=== PATIENT | female | born 1990 | race Caucasian/White ===

== ENCOUNTER 2018-03-26 01:26 | Emergency (ER) | payer SELFPAY ==
[2018-03-26 06:55] VITALS: BP 101/60; PULSE 96
--- NOTE | 2018-03-26 08:14 | OBDCSUM ---
Datetime: 03/26/2018 02:33 Discharged to, Provider: Home Follow up at, Provider: [facility] Disch Instr Activity: Normal activity Disch Instr Diet: Regular Discharge Diet restrict Prov: DRINK PLENTY OF WATER Discharge Time: 03/26/2018 02:34 Follow up in weeks, Provider: 03/28/2018 Disch Referrals: None Disch Activity Restrictions: No lifting Discharge Diagnosis Prov Other: False labor
--- NOTE | 2018-03-26 08:14 | OBHP ---
Datetime: 03/26/2018 02:10 IP Adm Impression: , intrauterine IP Admit Plan: Observation/Evaluation; Discharge home Admit Comment, IP Provider: This is 27 y/o F, , IUP at 36 wk GA comes to the OB ED c/o 1 day hi story of crampy upper abdominal pain. Pain comes and goes like CTX, 6/10 in severity, associated with 2 loose BMs and food makes this pain better. Denies any sour taste in mouth, no urinary symptoms, denies chest pain, dizziness or headache. PMH: Childhood asthma, not on any meds PSH: Appendectomy 3 yrs ago Allg: NKDA Meds: PNV/Iron SH: Denies FH: + HTN and DM OB: 1 NVD VS: Reviewed PE: as above A/P: 27 y/o F, , IUP at 36 wk GA comes to the OB ED c/o 1 day history of crampy upper abdomin al pain. - Observation - Pelvic exam - reevaluations - Possible discharge home Patient seen with Dr. Granados --- Mani Sumner, PGY-[address] Granados: I have evaluated the patient independently and I agree with the above Pelvic Type - PN: Adequate Extremities - PN: Normal Abdomen - PN: Normal Back - PN: Normal Lungs - PN: Normal Heart - PN: Normal Thyroid - PN: Normal Neurologic - PN: Normal HEENT - PN: Normal General - PN: Normal FHR - Baseline A Provider: 130 EGA AdmitDate IP: 36.0 Vital Signs Provider: Reviewed; Within Normal Limits IP Chief Complaint: Maternal discomfort NICHD Variability Prov Fetus A: Moderate 6-25bpm NICHD Accel Fetus A IP Provider: 15X15 FHR Category Provider Fetus A: Category I NICHD Decel Fetus A IP Provider: None Dilatation, Provider: FT Genitourinary Exam: Normal
== END 2018-03-26 02:35 | disposition home or self-care (01) ==
LOC: H.EROB2 01:26
DX: O47.03 False labor before 37 completed weeks of gestation, third trimester (principal); Z3A.36 36 weeks gestation of pregnancy; O26.93 Pregnancy related conditions, unspecified, third trimester; R10.2 Pelvic and perineal pain; R19.7 Diarrhea, unspecified

== ENCOUNTER 2018-04-11 20:58 | Inpatient (IN) | payer MEDICAID, SELFPAY ==
[2018-04-11 21:16] VITALS: BMI 25.0
[2018-04-11] MEDS ORDERED: Lactated Ringer's 1,000 ML IV SCH (22:45)
[2018-04-11 23:16] LABS: BASO % 0.5 % (0.0-2.0); EOS # 0.1 K/uL (0.0-0.7); EOS % 1.2 % (0.0-4.0); HEMOGLOBIN 12.3 g/dL (12.0-16.0); LYMPH # 1.5 K/uL (1.0-4.3); LYMPH % 16.6 % (20.0-40.0); MEAN CELL VOLUME 79.2 fl (81.0-99.0); MEAN CORPUSCULAR HEMOGLOBIN 26.5 pg (27.0-31.0); MEAN CORPUSCULAR HGB CONC 33.5 g/dL (33.0-37.0); MEAN PLATELET VOLUME 8.5 fl (7.2-11.7); MONO # 0.6 K/uL (0.0-0.8); MONO % 6.2 % (0.0-10.0); NEUT # 6.8 K/uL (1.8-7.0); NEUT % 75.5 % (50.0-75.0); NRBC % 0.2 % (0.0-0.0); RBC 4.62 Mil/uL (3.80-5.20); RED CELL DISTRIBUTION WIDTH 20.1 % (11.5-14.5); WHITE BLOOD COUNT 9.1 K/uL (4.8-10.8)
[2018-04-11 23:22] VITALS: O2SAT 99
--- NOTE | 2018-04-12 00:08 | OBADHP ---
Datetime: 04/11/2018 23:38 Admit Comment, IP Provider: Pt is a 27 y/o female with IUP 38.2 wks gestation (CLINT 04/13) presen ts to [facility] with complaints of LOF intermittently for the past day. Denies ctx, vb. Reports FM PNC: CFH. Anemia. O+, GBS negative, Labs reveiwed unremarkable. No TDAP OBHX: 1 , FT, no complications PMHX: denies Meds: PNV, Ferrous Sulfate Allergies: NKDA Social: Denies x3 Maternal Vitals wnl General: Appears comfortable, NAD Cardio:RRR, No murmurs Pulm: Lungs CTABL Abdomen: gravid, NT Speculum: +pooling, clear, Nitrazine+ Cervical: 4cm, 75, -2 FHR-150 Limited bedside U/S: Cephalic A: IUP at 38.2 wks gestation, SROM P: Admit to L_D, CBC, Type _ Screen, Continous Monitoring, Monitor for progression of labor. Discussed case with Dr. Pk Licea, PGY1 Addendum: Plan admit patient for spontaneous rupture of membranes. Plan for observation, consider Pitocin au gmentation if indicated. Maternal well-being and well-being reassuring at this time. Plan discu ssed with patient and all questions answered. Pk Vital Signs Provider: Reviewed; Within Normal Limits IP Chief Complaint: Suspected ruptured membranes EGA AdmitDate IP: 38.3 IP Adm Impression: Term, intrauterine ; Ruptured Membranes IP Admit Plan: Admit to unit; Initiate labor protocol Datetime: 04/11/2018 23:28 Pool Provider: Positive Dilatation, Provider: 4 Effacement, Provider: 70 Station, Provider: -2 Datetime: 03/26/2018 02:10 Pelvic Type - PN: Adequate Extremities - PN: Normal Abdomen - PN: Normal Back - PN: Normal Lungs - PN: Normal Heart - PN: Normal Thyroid - PN: Normal Neurologic - PN: Normal HEENT - PN: Normal General - PN: Normal FHR - Baseline A Provider: 130 NICHD Variability Prov Fetus A: Moderate 6-25bpm NICHD Accel Fetus A IP Provider: 15X15 FHR Category Provider Fetus A: Category I NICHD Decel Fetus A IP Provider: None Genitourinary Exam: Normal
[2018-04-12] MEDS: Lactated Ringer's 1,000 ML IV SCH ×2 (01:40→03:26)
[2018-04-12] MEDS ORDERED: Fentanyl/Bupivacaine HCl 250 ML EPI ONE (02:48)
[2018-04-12] MEDS ORDERED: Lidocaine 2% Inj (20ml) ONE (02:50)
[2018-04-12] MEDS ORDERED: Bupivacaine HCl 0.25% PF (10 ml) Inj ONE (04:45)
[2018-04-12] MEDS ORDERED: Benzocaine/Menthol SPRAY TOP PRN (10:02)
[2018-04-12] MEDS ORDERED: Oxycodone/Acetaminophen 5/325 mg Tab PO PRN ×2 (10:02→14:32)
[2018-04-12] MEDS: Benzocaine/Menthol SPRAY TOP PRN (18:29)
[2018-04-12 18:33] LABS: URINE BILIRUBIN NEGATIVE (NEGATIVE); URINE BLOOD LARGE (NEGATIVE); URINE CLARITY SLIGHTY-CLOUDY (Clear); URINE COLOR YELLOW (YELLOW); URINE GLUCOSE (UA) >=500 mg/dL (Normal); URINE LEUKOCYTE ESTERASE NEG Leu/uL (Negative); URINE PROTEIN NEGATIVE (NEGATIVE); URINE UROBILINOGEN 0.2-1.0 mg/dL (0.2-1.0)
--- NOTE | 2018-04-13 08:24 | OBPPN ---
Datetime: 04/13/2018 06:56 PP Pain Prov: Within normal limits PP Nausea Prov: Denies PP Flatus Prov: Yes PP BM Prov: No PP Impression Prov: Normal progression PP Plan Prov: Continue present management Vital Signs Provider PP: Reviewed; Within Normal Limits Datetime: 04/12/2018 18:16 PP Impression Other Prov: urinary retention PP Progress Note Prov: PPD 0 Pt delivered this am; after delivery and transfer to mother-baby unit experienced urina ry urgency; voided 100 ml four times as per RN, and continued to have urge to void. Pt was straight c atheterized and 1600 cc urine was obtained. If pt continues to experience symptoms of urinary retention, plan for becerra insertion. Discussed w/ Dr. Dylan [email or web address] Aware of above - MAHNDO : UA/C_S/Cephalexin/becerra and will consider urology IP PP Procedures Comments: s/p straight catheterization
--- NOTE | 2018-04-13 08:40 | OBPPN ---
Datetime: 04/13/2018 06:56 PP Progress Note Prov: PPD 1 S: 27 y/o female s/p on 04/12/18 evaluated on PPD1. Pt was seen and examined at [facility] this AM. Pt retaining urine yesterday, was straight cath x1 but still retaining so becerra placed ov ernight. Pt reports mild abdominal pain, but well controlled with pain meds. Ambulating. Breast feedi ng (with formula supplementation) without difficulty. Lochia is similar to menses volume. No BM but p assing gas per rectum. Denies fever/chills, diarrhea, nausea/vomiting, chest pain, dyspnea, and dizz iness. Wants circumcision for baby boy. O: VS stable overnight. Urine output after becerra placement- 750cc GEN: NAD Cardio: S1S2, no murmurs Lungs: clear breath sounds b/l, no wheezing Abdomen: BS+, appropriate tenderness to palpation. Uterus is firm and at the level of the umbilic us. EXT: No edema, calves nontender NEURO/PSYCH: AAOx3, no grossly focal deficits, preserved affect and mood. H/H (post ): pending U/A (04/13): Mild pyuria; LES neg, Nitrite neg Assessment/Plan: 25 y/o female s/p on 04/12/18 PPD1. Pt remains afebrile, tolerating pain with medication. Tolerating diet. Given pt's urinary retention w/ symp of urgency, started on tr eatment for possibel Cystitis. Packing removed this am Anticipating d/c on 04/14. Continue with curre nt management Encourage and ambulating Continue monitoring urine output Continue Kephlex 500 PO TID for Cystitis Consider removing becerra for voiding trial Ibuprofen 600q6 for pain Senakot 17.2 mg PO HS Migue Licea, PGY1 OB Hospitalist on-call. Pt seen this morning on rounds. Perineum swollen; becerra in place. No ac tive VB noted/appears to be normal amt lochia...urology consult Dr Bird called [phone]
[2018-04-13 09:05] LABS: MEAN CELL VOLUME 79.7 fl (81.0-99.0); MEAN CORPUSCULAR HEMOGLOBIN 27.3 pg (27.0-31.0); MEAN CORPUSCULAR HGB CONC 34.3 g/dL (33.0-37.0); RBC 3.64 Mil/uL (3.80-5.20); WHITE BLOOD COUNT 10.5 K/uL (4.8-10.8)
[2018-04-13 09:18] LABS: HEMOGLOBIN 9.9 g/dL (12.0-16.0)
[2018-04-13] MEDS: Benzocaine/Menthol SPRAY TOP PRN (09:24)
--- NOTE | 2018-04-13 12:36 | CP.PCM.PN ---
Subjective - Date & Time of Evaluation Date of Evaluation: 04/13/18 Time of Evaluation: 12:32 - Subjective Subjective: 27 year old uzbek female with post urinary retention. No hx of previous urinary problems, Becerra draining clear urine. Suggest leave becerra for 24-72 hr if pt fails to void discharge with becerra and refer for opd MONICA Samuel Objective - Vital Signs/Intake and Output Vital Signs (last 24 hours): Temp Pulse Resp BP Pulse Ox 98.2 F 95 H 20 114/84 99 04/11/18 23:21 04/11/18 23:21 04/11/18 23:21 04/11/18 23:21 04/11/18 23:21 - Medications Medications: Current Medications Benzocaine/Menthol (Dermoplast) 1 sprays TOP PRN PRN PRN Reason: Perineal Discomfort Last Admin: 04/13/18 09:24 Dose: 1 sprays Cephalexin Monohydrate (Keflex) 500 mg PO TID REYMUNDO PRN Reason: Protocol Last Admin: 04/13/18 09:22 Dose: 500 mg Docusate Sodium (Colace) 100 mg PO BID [facility] Last Admin: 04/13/18 09:23 Dose: 100 mg Ibuprofen (Motrin Tab) 600 mg PO Q6 PRN PRN Reason: Pain, Mild (1-3) Last Admin: 04/13/18 00:59 Dose: 600 mg Oxycodone/Acetaminophen (Percocet 5/325 Mg Tab) 1 tab PO Q4 PRN PRN Reason: Pain, moderate (4-7) Stop: 04/15/18 10:03 - Labs Labs: 04/13/18 06:30 04/13/18 06:30
[2018-04-14 23:41] VITALS: BP 126/80; PULSE 92; RESP 18; TEMP 97.1
--- NOTE | 2018-04-15 08:21 | CON ---
DATE: 04/13/2018 TIME: Approximately noontime. REASON FOR CONSULTATION: urinary retention. HISTORY OF PRESENT ILLNESS: The patient is a 27-year-old female who delivered her second child with a normal spontaneous delivery, which did require episiotomy. The patient was having difficulty voiding after the delivery and found to be distended and Shelton catheter was inserted and large amount of urine was obtained. She gives no history of prior urinary difficulties prior to this delivery. She did not have urinary retention after her first child. She gives no history of having fever, dysuria, or pain at home. SOCIAL HISTORY: Noncontributory. REVIEW OF SYSTEMS: RESPIRATORY: The patient has no respiratory complaints. CARDIAC: The patient has no cardiac complaints. GASTROINTESTINAL: The patient has no nausea or change in bowel habits. GENITOURINARY: The patient has been unable to void. She states she is having only urine simply dribbled out and she could not empty her bladder. Shelton catheter was inserted and large amount of clear urine was obtained. GYNECOLOGIC: The patient is , having delivered her second child on this admission vaginally. ORTHOPEDIC: Noncontributory. NEUROLOGIC: Noncontributory. PHYSICAL EXAMINATION: VITAL SIGNS: The patient is alert, oriented, and awake. She has her child with her. HEAD, EARS, EYES, NOSE AND THROAT: Within normal limits. NECK: Supple. There are no bruits or masses. CHEST: Clear bilaterally. There are no rales or rhonchi. BREASTS: Normal. ABDOMEN: Soft and nontender. The bladder is no longer distended. The patient has no anterior abdominal tenderness. Shelton catheter is draining clear urine. Because of the state, the vaginal examination was not done. IMPRESSION: urinary retention. PLAN: Suggestive of Shelton for 24 to 72 hours and gives the second voiding trial. The patient cannot and refer for urological examination. No further therapy on this admission. Bethel Samuel MD
== END 2018-04-14 19:00 | disposition home or self-care (01) | DRG 775 ==
LOC: H.EROB2 20:58 → H.L&D 22:45 → H.OB/GYN 04-12 12:35
PROVIDERS: ADMIT Obstetrics & Gynecology; ATTEND Obstetrics & Gynecology
PROC: 4A1HXCZ Monitoring of Products of Conception, Cardiac Rate, External Approach (ICD-10-PCS; 2018-04-11)
PROC: 10E0XZZ Delivery of Products of Conception, External Approach (ICD-10-PCS; principal; 2018-04-12)
PROC: 0KQM0ZZ Repair Perineum Muscle, Open Approach (ICD-10-PCS; 2018-04-12)
DX: O70.1 Second degree perineal laceration during delivery (principal); Z37.0 Single live birth; O86.22 Infection of bladder following delivery; Z3A.38 38 weeks gestation of pregnancy

== ENCOUNTER 2018-04-29 02:20 | Inpatient (IN) | payer MEDICAID, SELFPAY ==
[2018-04-29 02:20] VITALS: BMI 25.0
[2018-04-29] MEDS ORDERED: Alum-Mag Hydrox-Simethicone Susp (30 mL) PO STA (03:07)
--- NOTE | 2018-04-29 03:09 | ED PDOC ---
HPI: Abdomen Chief Complaint (Provider): "julio had epigastric pain today" History Per: Patient History/Exam Limitations: no limitations Onset/Duration Of Symptoms: Hrs Outside of [place] travel?: No Current Symptoms Are (Timing): Still Present <Kendall Hu - Last Filed: 04/29/18 05:08> <Abelino Chaudhari - Last Filed: 04/29/18 07:11> Chief Complaint (Nursing): Abdominal Pain Additional Complaint(s): 27 y/o s/p 15 days ago presents for evaluation of epigastric pain. Pain started this morning, without any inciting event. It is located in her epigastric region, radiates along her rectus abdomins muscle, 8/10, constant, pinching in character. Alleviated with rest, exacerbated with straining. Tolerated PO intake all day w/o issue. No associated nausea/vomiting/diarrhea/ constipation. was unremarkable. Denies ETOH/NSAID use. Has not taken any medications. No fever/chills, RUQ pain. (Kendall Hu) Past Medical History - Medical History PMH: Denies: Depression, Diabetes, HTN - Family History Family History: States: No Known Family Hx <Kendall Hu - Last Filed: 04/29/18 05:08> <Abelino Chaudhari - Last Filed: 04/29/18 07:11> Vital Signs: Last Vital Signs Temp 98.2 F 04/29/18 02:43 Pulse 81 04/29/18 02:43 Resp 16 04/29/18 02:43 BP 116/78 04/29/18 02:43 Pulse Ox 99 04/29/18 05:10 - Home Medications Home Medications: Ambulatory Orders Medication Instructions Recorded Vit No.126/Iron/Folic 1 tab PO DAILY 04/12/18 [Classic Tablet] Docusate [Colace] 100 mg PO BID cap 04/14/18 Ibuprofen [Motrin Tab] 600 mg PO Q6 PRN tab 04/14/18 - Allergies Allergies/Adverse Reactions: Allergies Allergy/AdvReac Type Severity Reaction Status Date / Time No Known Allergies Allergy Verified 04/29/18 02:43 Review of Systems Constitutional: Negative for: Fever, Chills, Sweats, Weakness Cardiovascular: Negative for: Chest Pain, Palpitations, Orthopnea, Edema Respiratory: Negative for: Cough, Shortness of Breath, Hemoptysis, SOB with Exertion, Pleuritic Pain, Sputum, Wheezing Gastrointestinal: Positive for: Other (epigastric pain ). Negative for: Nausea , Vomiting, Abdominal Pain, Diarrhea, Constipation, Melena, Hematochezia, Hematemesis Genitourinary Female: Negative for: Dysuria, Frequency, Incontinence Musculoskeletal: Negative for: Shoulder Pain, Back Pain Skin: Negative for: Rash, Jaundice Neurological: Negative for: Weakness, Numbness, Confusion, Altered Mental Status Psych: Negative for: Anxiety, Depression <Kendall Hu - Last Filed: 04/29/18 05:08> Physical Exam - Reviewed Vital Signs Reviewed: Yes - Physical Exam Appears: Positive for: Well, Non-toxic, No Acute Distress Head Exam: Positive for: ATRAUMATIC, NORMAL INSPECTION, NORMOCEPHALIC Skin: Positive for: Normal Color, Warm, Dry. Negative for: Diaphoresis, Pallor , Rash, Jaundice Eye Exam: Positive for: Normal appearance, EOMI, PERRL. Negative for: Conjunctival injection, Scleral icterus Neck: Positive for: Painless ROM, Supple Cardiovascular/Chest: Positive for: Regular Rate, Rhythm, Chest Non Tender. Negative for: Edema, Gallop, JVD, Murmur, Tachycardia, Irregularly Irregular Respiratory: Positive for: Normal Breath Sounds. Negative for: Decreased Breath Sounds, Accessory Muscle Use, Crackles, Rales, Rhonchi, Wheezing Pulses-Dorsalis Pedis (L): 2+ Pulses-Dorsalis Pedis (R): 2+ Pulses-Radial (L): 2+ Pulses-Radial (R): 2+ Gastrointestinal/Abdominal: Positive for: Normal Exam, Bowel Sounds (normal ), Soft, Tenderness (epigastric ). Negative for: Mass, Distended, Guarding, Rebound, Hernia Back: Negative for: L CVA Tenderness, R CVA Tenderness Extremity: Positive for: Capillary Refill (<2s). Negative for: Pedal Edema Neurologic/Psych: Positive for: Alert, clin nurse II-XII, Oriented <Kendall Hu - Last Filed: 04/29/18 05:08> - Laboratory Results Result Diagrams: 04/29/18 04:00 04/29/18 04:08 - ECG O2 Sat by Pulse Oximetry: 99 - Progress Re-evaluation Time: 05:09 Condition: Re-examined, Improved <Kendall Hu - Last Filed: 04/29/18 05:08> - Laboratory Results Result Diagrams: 04/29/18 04:00 04/29/18 04:08 <Abelino Chaudhari - Last Filed: 04/29/18 07:11> - Progress ED Course And Treament: non-ulcer dyspepsia/pancreatitis/hernia GI cocktail cmp lipase abd CT re-evaluated labs wnl, CT pending (Kendall Hu) Medical Decision Making <Kendall Hu - Last Filed: 04/29/18 05:08> <FaraAbelino - Last Filed: 04/29/18 07:11> Medical Decision Makin CT FINDINGS: Lung bases: Unremarkable. No mass. No consolidation. ABDOMEN: Liver: Enlarged fatty liver. Gallbladder and bile ducts: Unremarkable. No ductal dilation. Pancreas: Unremarkable. No mass. No ductal dilation. Spleen: Unremarkable. No splenomegaly. Adrenals: Unremarkable. No mass. Kidneys and ureters: Unremarkable. No solid mass. No hydronephrosis. Stomach and bowel: Large amount of stool in the colon. Correlation with patient' s clinical history of constipation is recommended. Diverticulosis. PELVIS: Appendix: There is short appendix 1.2 cm with appendicolith measuring 1.7 cm with surrounding inflammation suspicious for acute appendicitis with thickening of the cecal base seen on image 124 series 3 versus an inflamed cecal diverticulum with fecalith. Correlation with patient's clinical history is recommended. Bladder: Bladder distention. Correlation with patient's voiding status is recommended. Reproductive: Enlarged uterus. Endometrial stripe thickening and/or fluid. ABDOMEN and PELVIS: Intraperitoneal space: Unremarkable. No free air. No significant fluid collection. Bones/joints: No acute fracture. No dislocation. Soft tissues: Unremarkable. Vasculature: Unremarkable. No abdominal aortic aneurysm. Lymph nodes: Subcentimeter mesenteric lymph nodes. IMPRESSION: 1. There is short appendix 1.2 cm with appendicolith measuring 1.7 cm with surrounding inflammation suspicious for acute appendicitis with thickening of the cecal base seen on image 124 series 3 most likely versus an inflamed cecal diverticulum with fecalith. Correlation with patient's clinical history is recommended. 2. uterus with endometrial stripe thickening and/or fluid. CRITICAL RESULT: The study was personally discussed on the telephone with [Abelino Causey] on 04/29/2018 6:57 AM EDT. The results were understood and acknowledged. Will discuss case with certified surgical tech/first assistant. 07 Discussed case with certified surgical tech/first assistant, who will evaluate patient in ED. Patient signed out from this provider to Dr. Cavazos. Scribe Attestation: Documented by Taisha Garrison acting as a scribe for Abelino Chaudhari MD. Scribe Attestation: All medical record entries made by the Scribe were at my direction and personally dictated by me. I have reviewed the chart and agree that the record accurately reflects my personal performance of the history, physical exam, medical decision making, and the department course for this patient. I have also personally directed, reviewed, and agree with the discharge instructions and disposition. (Abelino Chaudhari) Disposition - Patient ED Disposition Is Patient to be Admitted: Transfer of Care - Disposition Disposition: Transfer of Care Disposition Time: 05:10 <Kendall Hu - Last Filed: 04/29/18 05:08> - Patient ED Disposition Is Patient to be Admitted: Transfer of Care - Disposition Disposition Time: 07:00 Patient Signed Over To: Demar Cavazos Handoff Comments: Pending CT <Abelino Chaudhari - Last Filed: 04/29/18 07:11> - Clinical Impression Clinical Impression: Abdominal pain - Disposition Condition: STABLE Forms: [facility] ([place])
[2018-04-29] MEDS ORDERED: Iohexol 240 (50 ml) PO ONE (03:33)
[2018-04-29] MEDS ORDERED: Alum-Mag Hydrox-Simethicone Susp (30 mL) ONE (03:43)
[2018-04-29] MEDS ORDERED: Iohexol 240 (50 ml) ONE (03:43)
[2018-04-29 04:13] LABS: BASO # 0.1 K/uL (0.0-0.2); BASO % 0.8 % (0.0-2.0); EOS # 0.2 K/uL (0.0-0.7); HEMOGLOBIN 13.4 g/dL (12.0-16.0); LYMPH # 2.3 K/uL (1.0-4.3); LYMPH % 17.9 % (20.0-40.0); MEAN CELL VOLUME 79.3 fl (81.0-99.0); MEAN CORPUSCULAR HEMOGLOBIN 26.7 pg (27.0-31.0); MEAN CORPUSCULAR HGB CONC 33.6 g/dL (33.0-37.0); MEAN PLATELET VOLUME 7.8 fl (7.2-11.7); MONO # 0.6 K/uL (0.0-0.8); MONO % 4.7 % (0.0-10.0); NEUT # 9.4 K/uL (1.8-7.0); NEUT % 74.6 % (50.0-75.0); NRBC % 0.1 % (0.0-0.0); RBC 5.02 Mil/uL (3.80-5.20); RED CELL DISTRIBUTION WIDTH 17.5 % (11.5-14.5); SQUAMOUS EPITHIAL < 1 /hpf (0-5); URINE BILIRUBIN NEGATIVE (NEGATIVE); URINE BLOOD MODERATE (NEGATIVE); URINE CLARITY CLEAR (Clear); URINE COLOR STRAW (YELLOW); URINE GLUCOSE (UA) NEG (Normal); URINE LEUKOCYTE ESTERASE TRACE Leu/uL (Negative); URINE PROTEIN NEGATIVE (NEGATIVE); URINE UROBILINOGEN 0.2-1.0 mg/dL (0.2-1.0); WHITE BLOOD COUNT 12.6 K/uL (4.8-10.8)
[2018-04-29 04:20] LABS: ALBUMIN 4.1 g/dL (3.5-5.0); ALT/SGPT 34 U/L (9-52); AST/SGOT 27 U/L (14-36); BLOOD UREA NITROGEN 18 mg/dl (7-17); CALCIUM 10.1 mg/dL (8.4-10.2); GFR AFRICAN-AMERICAN > 60; GFR NON-AFRICAN AMERICAN > 60; LIPASE 95 U/L (23-300)
[2018-04-29] MEDS ORDERED: Sodium Chloride 0.9% 50 ML IV ONE (05:51)
[2018-04-29] MEDS ORDERED: Iohexol 300 100 ML IJ ONE (05:51)
--- NOTE | 2018-04-29 07:00 | CT ---
EXAM: CT Abdomen and Pelvis With Intravenous Contrast CLINICAL HISTORY: 27 years old, female; Pain; Abdominal pain; Epigastric; Additional info: Epig pain radiating down, recent vag delivery TECHNIQUE: Axial computed tomography images of the abdomen and pelvis with intravenous contrast. All CT scans at this facility use one or more dose reduction techniques, viz.: automated exposure control; ma/kV adjustment per patient size (including targeted exams where dose is matched to indication; i.e. head); or iterative reconstruction technique. 555 images are submitted. Axial images are submitted in soft tissue and lung windows. Oral contrast was administered. Coronal and sagittal reformatted images were created and reviewed. Axial reformatted images were created and reviewed. CONTRAST: 90 mL of [id number] administered intravenously. COMPARISON: No relevant prior studies available. FINDINGS: Lung bases: Unremarkable. No mass. No consolidation. ABDOMEN: Liver: Enlarged fatty liver. Gallbladder and bile ducts: Unremarkable. No ductal dilation. Pancreas: Unremarkable. No mass. No ductal dilation. Spleen: Unremarkable. No splenomegaly. Adrenals: Unremarkable. No mass. Kidneys and ureters: Unremarkable. No solid mass. No hydronephrosis. Stomach and bowel: Large amount of stool in the colon. Correlation with patient's clinical history of constipation is recommended. Diverticulosis. PELVIS: Appendix: There is short appendix 1.2 cm with appendicolith measuring 1.7 cm with surrounding inflammation suspicious for acute appendicitis with thickening of the cecal base seen on image 124 series 3 versus an inflamed cecal diverticulum with fecalith. Correlation with patient's clinical history is recommended. Bladder: Bladder distention. Correlation with patient's voiding status is recommended. Reproductive: Enlarged uterus. Endometrial stripe thickening and/or fluid. ABDOMEN and PELVIS: Intraperitoneal space: Unremarkable. No free air. No significant fluid collection. Bones/joints: No acute fracture. No dislocation. Soft tissues: Unremarkable. Vasculature: Unremarkable. No abdominal aortic aneurysm. Lymph nodes: Subcentimeter mesenteric lymph nodes. IMPRESSION: 1. There is short appendix 1.2 cm with appendicolith measuring 1.7 cm with surrounding inflammation suspicious for acute appendicitis with thickening of the cecal base seen on image 124 series 3 most likely versus an inflamed cecal diverticulum with fecalith. Correlation with patient's clinical history is recommended. 2. uterus with endometrial stripe thickening and/or fluid. CRITICAL RESULT: The study was personally discussed on the telephone with [Abelino Causey] on 04/29/2018 6:57 AM EDT. The results were understood and acknowledged.
--- NOTE | 2018-04-29 07:35 | ED PDOC ---
- Laboratory Results Result Diagrams: 04/29/18 04:00 04/29/18 04:08 - ECG O2 Sat by Pulse Oximetry: 99 Medical Decision Making Medical Decision Makin:00 Patient care endorsed from Dr. Abelino Chaudhari to Dr. Demar Cavazos pending surgical reevaluation. 09:05 Case discussed with rn surgical Chelly who wants pt on abx and to be admitted to hospitalist, who was made aware. 10:20 Pt developed shortness of breath and chest pains after morphine and zosyn. i evaluated her, her lungs were clear. no sweling or rash noted. She was given benadryl, albuterol, and oxygen. 10:40 On reevaluation, patient states that she feels better after the medication and treatments. rn surgical made aware of the possible med allergy and they will change the antibiotics. Scribe Attestation: Documented by Nabila Mukherjee, acting as a scribe for Demar Cavazos MD Provider Scribe Attestation: All medical entries made by the Scribe were at my direction and personally dictated by me. I have reviewed the chart and agree that the record accurately reflects my personal performance of the history, physical exam, medical decision making, and the department course for this patient. I have also personally directed, reviewed, and agree with the discharge instructions and disposition. Disposition - Clinical Impression Clinical Impression: Abdominal pain - POA Present On Arrival: None - Disposition Disposition: Admitted as In-Patient Disposition Time: 09:00 Condition: STABLE
--- NOTE | 2018-04-29 08:52 | CP.PCM.CON ---
<Amos Murphy - Last Filed: 04/29/18 15:18> History of Present Illness - History of Present Illness History of Present Illness: Surgery Consult note. Dr. Spaulding 27yo F with no significant past medical history here for evaluation of abdominal pain. Pain started at 3PM yesterday, located in the epigastric region , radiates to the periumbilical region. Pain described as sharp, waxing and waning, worse with movement (bending forward, flexing hips). States that the pain is similar to episode 3 years ago when she was diagnosed with acute appendicits and had Lap Appy performed in [facility]. She denies any fevers or chills. No sick contacts. She did have a normal vaginal delivery 15 days ago and is currently breast feeding. No N/V/D. Last BM yesterday night, normal caliber, no blood. No F/C. No urinary complaints. No CP/SOB. No headaches. PMHx: denies PSHx: Lap Appy 3 years ago in [facility] Family Hx: Non-contributory Social Hx: Lives in [facility] and is set to return May 09. Denies Tobacco. Denies ETOH. Denies illicit drugs NKDA Review of Systems - Review of Systems All systems: reviewed and no additional remarkable complaints except - Constitutional Constitutional: absent: Chills, Fever - Cardiovascular Cardiovascular: absent: Chest Pain, Dyspnea - Respiratory Respiratory: absent: Cough - Gastrointestinal Gastrointestinal: Abdominal Pain. absent: Diarrhea, Hematemesis, Hematochezia, Nausea, Vomiting - Genitourinary Genitourinary: absent: Dysuria Past Patient History - Past Medical History & Family History Past Medical History?: Yes Past Family History: Reviewed and not pertinent - Past Social History Smoking Status: Never Smoked Alcohol: None Drugs: Denies - CARDIAC Hx Hypertension: No - PSYCHIATRIC Hx Depression: No - SURGICAL HISTORY Hx Surgeries: No - ANESTHESIA Hx Anesthesia: No Meds Allergies/Adverse Reactions: Allergies Allergy/AdvReac Type Severity Reaction Status Date / Time morphine Allergy SHORTNESS Verified 04/29/18 10:35 OF BREATH Penicillins Allergy URTICARIA Verified 04/29/18 12:16 - Medications Medications: Current Medications Sodium Chloride (Sodium Chloride 0.9%) 1,000 mls @ 100 mls/hr IV .Q10H REYMUNDO Stop: 06/05/18 08:49 Piperacillin Sod/Tazobactam (Sod 3.375 gm/ Sodium Chloride) 100 mls @ 100 mls/ hr IVPB Q6 REYMUNDO PRN Reason: Protocol Morphine Sulfate (Morphine) 2 mg IVP Q4 PRN PRN Reason: Pain, moderate (4-7) Ondansetron HCl (Zofran Inj) 4 mg IVP Q6 PRN PRN Reason: Nausea/Vomiting Physical Exam - Constitutional Appears: Well, Non-toxic, No Acute Distress - Head Exam Head Exam: ATRAUMATIC, NORMAL INSPECTION, NORMOCEPHALIC - Eye Exam Eye Exam: EOMI, Normal appearance - ENT Exam ENT Exam: Mucous Membranes Moist - Respiratory Exam Respiratory Exam: NORMAL BREATHING PATTERN. absent: Accessory Muscle Use, Respiratory Distress - Cardiovascular Exam Cardiovascular Exam: RRR. absent: JVD - GI/Abdominal Exam GI & Abdominal Exam: Soft. absent: Distended, Guarding, Rebound Additional comments: Abdomen soft, non-distended. RLQ tenderness to palpation. No rebound, no guarding. - Extremities Exam Extremities exam: Positive for: normal inspection. Negative for: calf tenderness - Neurological Exam Neurological exam: Alert, Oriented x3 - Skin Skin Exam: Dry, Intact, Normal Color, Warm Results - Vital Signs Recent Vital Signs: Last Vital Signs Temp 98.2 F 04/29/18 07:55 Pulse 74 04/29/18 07:55 Resp 16 04/29/18 07:55 BP 126/70 04/29/18 07:55 Pulse Ox 100 04/29/18 07:55 - Labs Result Diagrams: 04/29/18 04:00 04/29/18 04:08 Labs: Laboratory Results - last 24 hr 04/29/18 04/29/18 04/29/18 04:00 04:00 04:08 WBC 12.6 H RBC 5.02 Hgb 13.4 D Hct 39.8 MCV 79.3 L MCH 26.7 L MCHC 33.6 RDW 17.5 H Plt Count 337 D MPV 7.8 Neut % (Auto) 74.6 Lymph % (Auto) 17.9 L [place] % (Auto) 4.7 Eos % (Auto) 2.0 Baso % (Auto) 0.8 Neut # (Auto) 9.4 H Lymph # (Auto) 2.3 [place] # (Auto) 0.6 Eos # (Auto) 0.2 Baso # (Auto) 0.1 Sodium 143 Potassium 4.1 Chloride 105 Carbon Dioxide 25 Anion Gap 17 BUN 18 H Creatinine 0.7 Est GFR ( Amer) > 60 Est GFR (Non-Af Amer) > 60 Random Glucose 83 Calcium 10.1 Total Bilirubin 0.3 AST 27 ALT 34 Alkaline Phosphatase 118 Total Protein 8.1 Albumin 4.1 Globulin 4.0 H Albumin/Globulin Ratio 1.0 Lipase 95 Urine Color Straw Urine Clarity Clear Urine pH 6.0 Ur Specific [place] 1.009 Urine Protein Negative Urine Glucose (UA) Neg Urine Ketones Negative Urine Blood Moderate Urine Nitrate Negative Urine Bilirubin Negative Urine Urobilinogen 0.2-1.0 Ur Leukocyte Esterase Trace Urine RBC (Auto) 2 Urine Microscopic WBC 3 Ur Squamous Epith Cells < 1 Assessment & Plan - Assessment and Plan (Free Text) Assessment: 27yo F with stump appendicitis - CT Abd/Pelvis noted. 1.7cm Appendicolith, wild-appendiceal stump inflammation with 1.2cm dilation. Plan: - NPO except meds - IVF - IV Abx - Pain management - Antiemetics prn - f/u AM labs Further recs as per Dr. Chelly Murphy PGY1 surgery pager: [phone] <Maurizio Spaulding - Last Filed: 04/29/18 16:36> History of Present Illness - History of Present Illness History of Present Illness: Patient was seen and examined at the bedside. Agree with resident's note above. Meds - Medications Medications: Current Medications Acetaminophen (Tylenol 325mg Tab) 650 mg PO Q6 PRN PRN Reason: Pain, Mild (1-3) Acetaminophen (Tylenol 325mg Tab) 650 mg PO Q6 PRN PRN Reason: Fever >100.4 F Albuterol/Ipratropium (Duoneb 3 Mg/0.5 Mg (3 Ml) Ud) 3 ml INH RQ6 PRN PRN Reason: Shortness of Breath Sodium Chloride (Sodium Chloride 0.9%) 1,000 mls @ 100 mls/hr IV .Q10H REYMUNDO Stop: 04/30/18 08:49 Last Admin: 04/29/18 09:25 Dose: 100 mls/hr Ciprofloxacin (Cipro 400mg/200ml Dsw) 400 mg in 200 mls @ 200 mls/hr IVPB Q12 REYMUNDO PRN Reason: Protocol Metronidazole (Flagyl 500mg/100ml Ns) 100 mls @ 100 mls/hr IVPB Q8 REYMUNDO PRN Reason: Protocol Ondansetron HCl (Zofran Inj) 4 mg IVP Q6 PRN PRN Reason: Nausea/Vomiting Pantoprazole Sodium (Protonix Ec Tab) 40 mg PO DAILY [facility] Results - Vital Signs Recent Vital Signs: Last Vital Signs Temp 98.2 F 04/29/18 16:18 Pulse 69 04/29/18 16:18 Resp 17 04/29/18 16:18 BP 91/61 L 04/29/18 16:18 Pulse Ox 99 04/29/18 16:18 - Labs Result Diagrams: 04/29/18 04:00 04/29/18 04:08 Labs: Laboratory Results - last 24 hr 04/29/18 04/29/18 04/29/18 04:00 04:00 04:08 WBC 12.6 H RBC 5.02 Hgb 13.4 D Hct 39.8 MCV 79.3 L MCH 26.7 L MCHC 33.6 RDW 17.5 H Plt Count 337 D MPV 7.8 Neut % (Auto) 74.6 Lymph % (Auto) 17.9 L [place] % (Auto) 4.7 Eos % (Auto) 2.0 Baso % (Auto) 0.8 Neut # (Auto) 9.4 H Lymph # (Auto) 2.3 [place] # (Auto) 0.6 Eos # (Auto) 0.2 Baso # (Auto) 0.1 Sodium 143 Potassium 4.1 Chloride 105 Carbon Dioxide 25 Anion Gap 17 BUN 18 H Creatinine 0.7 Est GFR ( Amer) > 60 Est GFR (Non-Af Amer) > 60 Random Glucose 83 Calcium 10.1 Total Bilirubin 0.3 AST 27 ALT 34 Alkaline Phosphatase 118 Total Protein 8.1 Albumin 4.1 Globulin 4.0 H Albumin/Globulin Ratio 1.0 Lipase 95 Urine Color Straw Urine Clarity Clear Urine pH 6.0 Ur Specific [place] 1.009 Urine Protein Negative Urine Glucose (UA) Neg Urine Ketones Negative Urine Blood Moderate Urine Nitrate Negative Urine Bilirubin Negative Urine Urobilinogen 0.2-1.0 Ur Leukocyte Esterase Trace Urine RBC (Auto) 2 Urine Microscopic WBC 3 Ur Squamous Epith Cells < 1 Assessment & Plan - Assessment and Plan (Free Text) Plan: - Will follow
[2018-04-29] MEDS ORDERED: Piperacillin/Tazobact 3.375 gm Inj IVPB ONE (09:15)
[2018-04-29] MEDS: Sodium Chloride 0.9% 1,000 ML IV SCH ×2 (09:25→19:30)
[2018-04-29] MEDS ORDERED: DiphenhydrAMINE 50 mg/ml Inj IVP STA (09:45)
[2018-04-29] MEDS ORDERED: Albuterol 0.083% Inhal Sol (2.5 mg/3 mL) UD INH ONE (09:46)
--- NOTE | 2018-04-29 09:48 | CP.PCM.HP ---
History of Present Illness - History of Present Illness History of Present Illness: 27 y/o F with no past medical history presented to ER with abdominal pain.Patient at present appears drowsy after receiving Benadryl for allergic reaction but able to answer questions. She and her gave history of abdominal pain starting yesterday , initially located in epigastric , periumbilical area, sharp , on and off worse with movement , associated with nausea . She denies any fever , chills , diarrhea or constipation .She has history of laparascopic appendectomy 3 years ago in [facility]. She had normal vaginal delivery 15 days ago and is still having vaginal spotting but denies any heavy bleeding .Denies any dysuria or frequency. She is breast feeding at present.Denies any chest pain , SOB, palpitations. Ct abdomen and pelvis in Er showed 1.7 cm appendicolith , peristump inflammation 1nd 1.2 cm dilatation. WBC was slightly elevated 12 K While in ER Morphine IV was given for pain and Zosyn IV started for peristump inflammation and patient developed allergic reaction with wheezing ( as per patient ) low BP and diffuse rash .Morphine and Zosyn were stopped , given Duonebs, Benadrl IV and bolus of IVF. At present lethargic , BP 99/50 , afebrile with diffuse skin rash and no respiratory distress. Patient to be admitted for possible infected stump appendicitis and allergic reaction of unclear etiology Allergies ; NKDA PMH : none Medications; MVI Surgery ;laparascopic appendectomy 3 years ago Family history ; None Social history : ,lives in [facility], had vaginal delivery 15 days ago, Denies smoking , ETOH or drug abuse ROS: complains of abdominal pain , feeling drowsy , with chills PMD ;None Code status: Full Surrogate decision maker: Present on Admission - Present on Admission Any Indicators Present on Admission: No Review of Systems - Review of Systems All systems: reviewed and no additional remarkable complaints except Past Patient History - Infectious Disease Hx of Infectious Diseases: None - Tetanus Immunizations Tetanus Immunization: Unknown - Past Medical History & Family History Past Medical History?: Yes Past Family History: Reviewed and not pertinent - Past Social History Smoking Status: Never Smoked Alcohol: None Drugs: Denies Home Situation {Lives}: With Family Domestic Violence: Negative - CARDIAC Hx Hypertension: No - PSYCHIATRIC Hx Depression: No - SURGICAL HISTORY Hx Surgeries: No - ANESTHESIA Hx Anesthesia: No Meds Allergies/Adverse Reactions: Allergies Allergy/AdvReac Type Severity Reaction Status Date / Time morphine Allergy SHORTNESS Verified 04/29/18 10:35 OF BREATH Physical Exam - Constitutional Appears: Non-toxic Additional comments: drowsy - Head Exam Head Exam: ATRAUMATIC, NORMOCEPHALIC - Eye Exam Eye Exam: PERRL Pupil Exam: NORMAL ACCOMODATION - ENT Exam ENT Exam: Mucous Membranes Dry - Neck Exam Neck exam: Positive for: Full Rom, Normal Inspection - Respiratory Exam Respiratory Exam: Clear to Auscultation Bilateral, NORMAL BREATHING PATTERN. absent: Rales, Rhonchi, Wheezes - Cardiovascular Exam Cardiovascular Exam: REGULAR RHYTHM, RRR, +S1, +S2. absent: JVD - GI/Abdominal Exam GI & Abdominal Exam: Normal Bowel Sounds, Soft, Tenderness (with palpation diffuse ). absent: Distended, Guarding, Rebound - Rectal Exam Rectal Exam: Deferred - Extremities Exam Extremities exam: Positive for: full ROM, normal capillary refill, normal inspection, pedal pulses present. Negative for: calf tenderness, joint swelling , pedal edema - Neurological Exam Neurological exam: Alert, CN II-XII Intact, Oriented x3 Additional comments: drowsy but AAOx 3 , answers all questions and follows commands - Skin Skin Exam: Dry, Intact, Rash, Urticaria, Warm Results - Vital Signs Recent Vital Signs: Last Vital Signs Temp 98.2 F 04/29/18 07:55 Pulse 74 04/29/18 07:55 Resp 16 04/29/18 07:55 BP 126/70 04/29/18 07:55 Pulse Ox 99 04/29/18 09:08 - Labs Result Diagrams: 04/29/18 04:00 04/29/18 04:08 Labs: Laboratory Results - last 24 hr 04/29/18 04/29/18 04/29/18 04:00 04:00 04:08 WBC 12.6 H RBC 5.02 Hgb 13.4 D Hct 39.8 MCV 79.3 L MCH 26.7 L MCHC 33.6 RDW 17.5 H Plt Count 337 D MPV 7.8 Neut % (Auto) 74.6 Lymph % (Auto) 17.9 L [place] % (Auto) 4.7 Eos % (Auto) 2.0 Baso % (Auto) 0.8 Neut # (Auto) 9.4 H Lymph # (Auto) 2.3 [place] # (Auto) 0.6 Eos # (Auto) 0.2 Baso # (Auto) 0.1 Sodium 143 Potassium 4.1 Chloride 105 Carbon Dioxide 25 Anion Gap 17 BUN 18 H Creatinine 0.7 Est GFR ( Amer) > 60 Est GFR (Non-Af Amer) > 60 Random Glucose 83 Calcium 10.1 Total Bilirubin 0.3 AST 27 ALT 34 Alkaline Phosphatase 118 Total Protein 8.1 Albumin 4.1 Globulin 4.0 H Albumin/Globulin Ratio 1.0 Lipase 95 Urine Color Straw Urine Clarity Clear Urine pH 6.0 Ur Specific [place] 1.009 Urine Protein Negative Urine Glucose (UA) Neg Urine Ketones Negative Urine Blood Moderate Urine Nitrate Negative Urine Bilirubin Negative Urine Urobilinogen 0.2-1.0 Ur Leukocyte Esterase Trace Urine RBC (Auto) 2 Urine Microscopic WBC 3 Ur Squamous Epith Cells < 1 - Imaging and Cardiology CT scan - abdomen Additional comment: 1. There is short appendix 1.2 cm with appendicolith measuring 1.7 cm with surrounding inflammation suspicious for acute appendicitis with thickening of the cecal base seen on image 124 series 3 most likely versus an inflamed cecal diverticulum with fecalith. Correlation with patient's clinical history is recommended. 2. uterus with endometrial stripe thickening and/or fluid. Assessment & Plan - Assessment and Plan (Free Text) Assessment: 27 y/o F with no past medical history presented to ER with abdominal pain.She has history of laparascopic appendicitis 3 years go and vaginal delivery 15 days agoCt abdomen and pelvis in ER showed 1.7 cm appendicolith , peristump inflammation suspicious for acute appendicitis .WBC was slightly elevated 12 K While in ER Morphine IV was given for pain and Zosyn IV started for peristump inflammation and patient developed allergic reaction with wheezing ( as per patient ) low BP and diffuse rash .Morphine and Zosyn were stopped , given Duonebs, Benadrl IV and bolus of IVF. At present drowsy , BP 99/50 , afebrile with diffuse skin rash and no respiratory distress. Patient to be admitted for possible infected stump appendicitis and allergic reaction of unclear etiology 1. Suspected acute stump appendicitis / appendicolith Admit to med/ surg Surgery consulted pain management PRN . Avoid morphine since patient might have had allergic reaction to it Toradol PRN for pain IVF d/c Zosyn since patient developed allergic reaction . start Clindamycin 2. Allergic reaction unclear etiology , possible morphine or Zosyn . Will d/c both medications Benadryl, Duonebs given in ER and IVF bolus started Will give Solumedruol 125 mg IV x1 dose continue IVF 3. Recent vaginal delivery and breast feeding with minimal vaginal spotting Will need bresat pump for her milk supply 4. DVt prophylaxis SCD
[2018-04-29] MEDS ORDERED: Albuterol 0.083% Inhal Sol (2.5 mg/3 mL) UD ONE (09:58)
[2018-04-29] MEDS ORDERED: DiphenhydrAMINE 50 mg/ml Inj ONE (09:59)
[2018-04-29] MEDS ORDERED: Piperacillin/Tazobact 3.375 GM in Sodium Chloride 0.9% 100 ML IVPB SCH (10:00)
[2018-04-29] MEDS ORDERED: methylPREDNISolone 125 MG in Sodium Chloride 0.9% 50 ML IVPB ONE (10:49)
[2018-04-29] MEDS ORDERED: Albuterol-Ipratrop 3 mg / 0.5 (3 ml) UD INH PRN (11:23)
[2018-04-29] MEDS ORDERED: Oxycodone/Acetaminophen 5/325 mg Tab PO PRN ×2 (17:03→17:05)
[2018-04-29] MEDS: metroNIDAZOLE 500mg/100ml NS 100 ML IVPB SCH (17:41)
[2018-04-29] MEDS: Ciprofloxacin 400mg/200ml D5W 400 MG/200 ML BAG IVPB SCH (20:55)
[2018-04-30] MEDS: metroNIDAZOLE 500mg/100ml NS 100 ML IVPB SCH ×3 (00:36→16:04)
[2018-04-30 05:51] LABS: BASO % 0.2 % (0.0-2.0); HEMOGLOBIN 11.4 g/dL (12.0-16.0); LYMPH # 1.4 K/uL (1.0-4.3); LYMPH % 9.9 % (20.0-40.0); MEAN CELL VOLUME 80.5 fl (81.0-99.0); MEAN CORPUSCULAR HEMOGLOBIN 26.1 pg (27.0-31.0); MEAN CORPUSCULAR HGB CONC 32.4 g/dL (33.0-37.0); MEAN PLATELET VOLUME 8.2 fl (7.2-11.7); MONO # 0.6 K/uL (0.0-0.8); MONO % 4.2 % (0.0-10.0); NEUT # 12.2 K/uL (1.8-7.0); NEUT % 85.7 % (50.0-75.0); PLATELET COUNT 288 K/uL (130-400); RBC 4.36 Mil/uL (3.80-5.20); RED CELL DISTRIBUTION WIDTH 17.9 % (11.5-14.5); WHITE BLOOD COUNT 14.3 K/uL (4.8-10.8)
[2018-04-30] MEDS: Sodium Chloride 0.9% 1,000 ML IV SCH (06:04)
[2018-04-30 06:18] LABS: ALBUMIN 3.2 g/dL (3.5-5.0); ALT/SGPT 28 U/L (9-52); AST/SGOT 13 U/L (14-36); BLOOD UREA NITROGEN 10 mg/dl (7-17); CALCIUM 8.4 mg/dL (8.4-10.2); GFR AFRICAN-AMERICAN > 60; GFR NON-AFRICAN AMERICAN > 60
--- NOTE | 2018-04-30 07:37 | CP.PCM.PN ---
<Amos Murphy - Last Filed: 04/30/18 07:57> Subjective - Date & Time of Evaluation Date of Evaluation: 04/30/18 Time of Evaluation: 07:00 - Subjective Subjective: Surgery Progress note. Dr. Spaulding Pt seen and examined at bedside. No acute events overnight. No N/V/D. Had some chest tightness and shortness of breath after receiving morphine yesterday. She also had started Zosyn infusion just prior to receiving the morphine. Currently , she denies any CP/SOB. No N/V/D. Still with abdominal pain located in the RLQ. No F/C. No new complaints. Objective - Vital Signs/Intake and Output Vital Signs (last 24 hours): Temp Pulse Resp BP Pulse Ox 98.2 F 75 18 108/73 95 04/30/18 05:00 04/30/18 05:00 04/30/18 05:00 04/30/18 05:00 04/30/18 05:00 - Medications Medications: Current Medications Acetaminophen (Tylenol 325mg Tab) 650 mg PO Q6 PRN PRN Reason: Pain, Mild (1-3) Acetaminophen (Tylenol 325mg Tab) 650 mg PO Q6 PRN PRN Reason: Fever >100.4 F Albuterol/Ipratropium (Duoneb 3 Mg/0.5 Mg (3 Ml) Ud) 3 ml INH RQ6 PRN PRN Reason: Shortness of Breath Sodium Chloride (Sodium Chloride 0.9%) 1,000 mls @ 100 mls/hr IV .Q10H REYMUNDO Stop: 04/30/18 08:49 Last Admin: 04/30/18 06:04 Dose: 100 mls/hr Ciprofloxacin (Cipro 400mg/200ml Dsw) 400 mg in 200 mls @ 200 mls/hr IVPB Q12 REYMUNDO PRN Reason: Protocol Last Admin: 04/29/18 20:55 Dose: 200 mls/hr Metronidazole (Flagyl 500mg/100ml Ns) 100 mls @ 100 mls/hr IVPB Q8 REYMUNDO PRN Reason: Protocol Last Admin: 04/30/18 00:36 Dose: 100 mls/hr Ketorolac Tromethamine (Toradol) 15 mg IVP Q6 PRN PRN Reason: Pain, severe (8-10) Ondansetron HCl (Zofran Inj) 4 mg IVP Q6 PRN PRN Reason: Nausea/Vomiting Oxycodone/Acetaminophen (Percocet 5/325 Mg Tab) 1 tab PO Q4 PRN PRN Reason: Pain, Mild (1-3) Stop: 05/02/18 17:04 Oxycodone/Acetaminophen (Percocet 5/325 Mg Tab) 2 tab PO Q4 PRN PRN Reason: Pain, moderate (4-7) Stop: 05/02/18 17:06 Pantoprazole Sodium (Protonix Ec Tab) 40 mg PO DAILY REYMUNDO - Labs Labs: 04/30/18 04:20 04/30/18 04:20 - Constitutional Appears: Well, Non-toxic, No Acute Distress - Head Exam Head Exam: ATRAUMATIC, NORMAL INSPECTION, NORMOCEPHALIC - Eye Exam Eye Exam: EOMI, Normal appearance - ENT Exam ENT Exam: Mucous Membranes Moist - Respiratory Exam Respiratory Exam: NORMAL BREATHING PATTERN. absent: Accessory Muscle Use, Respiratory Distress - Cardiovascular Exam Cardiovascular Exam: absent: JVD - GI/Abdominal Exam GI & Abdominal Exam: Soft. absent: Distended, Guarding, Rigid, Rebound Additional comments: Tenderness to palpation RLQ. - Extremities Exam Extremities Exam: Normal Inspection - Neurological Exam Neurological Exam: Alert, Awake, Oriented x3 - Skin Skin Exam: Dry, Intact, Normal Color, Warm Assessment and Plan - Assessment and Plan (Free Text) Assessment: 27yo F with stump appendicitis - Leukocytosis increasing. Vitals stable. Afebrile. Plan: - Continue conservative management - NPO except meds - IVF - IV Abx - Pain management - Antiemetics prn - Will follow clinical course Further recs as per Dr. Chelly Murphy PGY1 Surgery pager:[phone] <Maurizio Spaulding - Last Filed: 04/30/18 10:05> Subjective - Date & Time of Evaluation Time of Evaluation: 09:40 - Subjective Subjective: Patient was seen and examined at the bedside. Agree with resident's note above. States that abdominal pain has much improved. Objective - Vital Signs/Intake and Output Vital Signs (last 24 hours): Temp Pulse Resp BP Pulse Ox 97.7 F 76 18 99/60 L 97 04/30/18 07:47 04/30/18 07:47 04/30/18 07:47 04/30/18 07:47 04/30/18 07:47 - Medications Medications: Current Medications Acetaminophen (Tylenol 325mg Tab) 650 mg PO Q6 PRN PRN Reason: Pain, Mild (1-3) Acetaminophen (Tylenol 325mg Tab) 650 mg PO Q6 PRN PRN Reason: Fever >100.4 F Albuterol/Ipratropium (Duoneb 3 Mg/0.5 Mg (3 Ml) Ud) 3 ml INH RQ6 PRN PRN Reason: Shortness of Breath Ciprofloxacin (Cipro 400mg/200ml Dsw) 400 mg in 200 mls @ 200 mls/hr IVPB Q12 REYMUNDO PRN Reason: Protocol Last Admin: 04/30/18 08:27 Dose: 200 mls/hr Metronidazole (Flagyl 500mg/100ml Ns) 100 mls @ 100 mls/hr IVPB Q8 REYMUNDO PRN Reason: Protocol Last Admin: 04/30/18 08:27 Dose: 100 mls/hr Ketorolac Tromethamine (Toradol) 15 mg IVP Q6 PRN PRN Reason: Pain, severe (8-10) Ondansetron HCl (Zofran Inj) 4 mg IVP Q6 PRN PRN Reason: Nausea/Vomiting Oxycodone/Acetaminophen (Percocet 5/325 Mg Tab) 1 tab PO Q4 PRN PRN Reason: Pain, Mild (1-3) Stop: 05/02/18 17:04 Oxycodone/Acetaminophen (Percocet 5/325 Mg Tab) 2 tab PO Q4 PRN PRN Reason: Pain, moderate (4-7) Stop: 05/02/18 17:06 Pantoprazole Sodium (Protonix Ec Tab) 40 mg PO DAILY REYMUNDO - Labs Labs: 04/30/18 04:20 04/30/18 04:20 Assessment and Plan - Assessment and Plan (Free Text) Plan: - Start clear liquid diet - ID consultation for antibiotic regimen - Repeat labs in am - Will follow
[2018-04-30] MEDS: Ciprofloxacin 400mg/200ml D5W 400 MG/200 ML BAG IVPB SCH ×2 (08:27→21:19)
--- NOTE | 2018-04-30 10:21 | CP.PCM.PN ---
Subjective - Date & Time of Evaluation Date of Evaluation: 04/30/18 Time of Evaluation: 09:15 - Subjective Subjective: Pt still has lower abd pain no fever no N/V denies CP no SOB no cough no wheezing Objective - Vital Signs/Intake and Output Vital Signs (last 24 hours): Temp Pulse Resp BP Pulse Ox 97.7 F 76 18 99/60 L 97 04/30/18 07:47 04/30/18 07:47 04/30/18 07:47 04/30/18 07:47 04/30/18 07:47 - Medications Medications: Current Medications Acetaminophen (Tylenol 325mg Tab) 650 mg PO Q6 PRN PRN Reason: Pain, Mild (1-3) Acetaminophen (Tylenol 325mg Tab) 650 mg PO Q6 PRN PRN Reason: Fever >100.4 F Albuterol/Ipratropium (Duoneb 3 Mg/0.5 Mg (3 Ml) Ud) 3 ml INH RQ6 PRN PRN Reason: Shortness of Breath Ciprofloxacin (Cipro 400mg/200ml Dsw) 400 mg in 200 mls @ 200 mls/hr IVPB Q12 REYMUNDO PRN Reason: Protocol Last Admin: 04/30/18 08:27 Dose: 200 mls/hr Metronidazole (Flagyl 500mg/100ml Ns) 100 mls @ 100 mls/hr IVPB Q8 REYMUNDO PRN Reason: Protocol Last Admin: 04/30/18 08:27 Dose: 100 mls/hr Ketorolac Tromethamine (Toradol) 15 mg IVP Q6 PRN PRN Reason: Pain, severe (8-10) Ondansetron HCl (Zofran Inj) 4 mg IVP Q6 PRN PRN Reason: Nausea/Vomiting Oxycodone/Acetaminophen (Percocet 5/325 Mg Tab) 1 tab PO Q4 PRN PRN Reason: Pain, Mild (1-3) Stop: 05/02/18 17:04 Oxycodone/Acetaminophen (Percocet 5/325 Mg Tab) 2 tab PO Q4 PRN PRN Reason: Pain, moderate (4-7) Stop: 05/02/18 17:06 Pantoprazole Sodium (Protonix Ec Tab) 40 mg PO DAILY REYMUNDO - Labs Labs: 04/30/18 04:20 04/30/18 04:20 - Constitutional Appears: Non-toxic, No Acute Distress - Head Exam Head Exam: ATRAUMATIC, NORMAL INSPECTION, NORMOCEPHALIC - Eye Exam Eye Exam: EOMI, Normal appearance, PERRL Pupil Exam: NORMAL ACCOMODATION - ENT Exam ENT Exam: Mucous Membranes Moist, Normal External Ear Exam - Neck Exam Neck Exam: Full ROM. absent: Meningismus - Respiratory Exam Respiratory Exam: NORMAL BREATHING PATTERN. absent: Respiratory Distress - Cardiovascular Exam Cardiovascular Exam: REGULAR RHYTHM, +S1, +S2 - GI/Abdominal Exam GI & Abdominal Exam: Soft, Tenderness, Normal Bowel Sounds - Extremities Exam Extremities Exam: Full ROM, Normal Capillary Refill. absent: Calf Tenderness, Pedal Edema - Back Exam Back Exam: Full ROM, NORMAL INSPECTION. absent: CVA tenderness (L), CVA tenderness (R) - Neurological Exam Neurological Exam: Alert, Awake, CN II-XII Intact, Oriented x3 Neuro motor strength exam: Left Upper Extremity: 5, Right Upper Extremity: 5, Left Lower Extremity: 5, Right Lower Extremity: 5 - Psychiatric Exam Psychiatric exam: Normal Affect, Normal Mood - Skin Skin Exam: Dry, Normal Color, Warm Assessment and Plan - Assessment and Plan (Free Text) Assessment: 27 y/o F with no past medical history presented to ER with abdominal pain. She has history of laparascopic appendicitis 3 years go and vaginal delivery [address] abdomen and pelvis in ER showed 1.7 cm appendicolith , peristump inflammation suspicious for acute appendicitis .WBC was slightly elevated 12 K While in ER Morphine IV was given for pain and Zosyn IV started for peristump inflammation and patient developed allergic reaction with wheezing ( as per patient ) low BP and diffuse rash . Morphine and Zosyn were stopped , given IV Solumedrol , Duonebs, Benadryl IV and bolus of IVF. Patient admitted for possible infected stump appendicitis and anaphylactic rx to ? Morphine vs Zosyn. 1. Acute stump appendicitis / appendicolith Surgery consulted pain management PRN . Avoid morphine since patient had allergic reaction to it Toradol PRN for pain IVF d/c Zosyn since patient developed allergic reaction cont IV Cipro and FLagyl ID consult - Dr Crane worsening of Leukocytosis prob sec to steroids start Clear liquid diet still with pain however no fever 2. Anaphylactic reaction possible morphine or Zosyn . d/c both medications Solumedrol , Benadryl, Duonebs given continue IVF 3. Recent vaginal delivery with minimal vaginal spotting 4. DVt prophylaxis SCD early ambulation
--- NOTE | 2018-04-30 10:34 | CP.PCM.CON ---
History of Present Illness - History of Present Illness History of Present Illness: discussed on rounds rx in progress leukocytosis likely due to stress/ demargination/ steroids/ agree with current antibiotics in view of allergy to PCN Past Patient History - Infectious Disease Hx of Infectious Diseases: None - Tetanus Immunizations Tetanus Immunization: Unknown - Past Medical History & Family History Past Medical History?: Yes - Past Social History Smoking Status: Never Smoked - CARDIAC Hx Cardiac Disorders: No - PULMONARY Hx Respiratory Disorders: No - NEUROLOGICAL Hx Neurological Disorder: No - HEENT Hx HEENT Problems: No - RENAL Hx Chronic Kidney Disease: No - ENDOCRINE/METABOLIC Hx Endocrine Disorders: No - HEMATOLOGICAL/ONCOLOGICAL Hx Blood Disorders: No - INTEGUMENTARY Hx Dermatological Problems: No - MUSCULOSKELETAL/RHEUMATOLOGICAL Hx Musculoskeletal Disorders: No Hx Falls: No - GASTROINTESTINAL Other/Comment: Appendectomy - GENITOURINARY/GYNECOLOGICAL Hx Genitourinary Disorders: No - PSYCHIATRIC Hx Psychophysiologic Disorder: No Hx Substance Use: No - SURGICAL HISTORY Hx Surgeries: Yes Hx Appendectomy: Yes - ANESTHESIA Hx Anesthesia: No Meds Allergies/Adverse Reactions: Allergies Allergy/AdvReac Type Severity Reaction Status Date / Time morphine Allergy SHORTNESS Verified 04/29/18 10:35 OF BREATH Penicillins Allergy URTICARIA Verified 04/29/18 12:16 - Medications Medications: Current Medications Acetaminophen (Tylenol 325mg Tab) 650 mg PO Q6 PRN PRN Reason: Pain, Mild (1-3) Acetaminophen (Tylenol 325mg Tab) 650 mg PO Q6 PRN PRN Reason: Fever >100.4 F Albuterol/Ipratropium (Duoneb 3 Mg/0.5 Mg (3 Ml) Ud) 3 ml INH RQ6 PRN PRN Reason: Shortness of Breath Ciprofloxacin (Cipro 400mg/200ml Dsw) 400 mg in 200 mls @ 200 mls/hr IVPB Q12 REYMUNDO PRN Reason: Protocol Last Admin: 04/30/18 08:27 Dose: 200 mls/hr Metronidazole (Flagyl 500mg/100ml Ns) 100 mls @ 100 mls/hr IVPB Q8 REYMUNDO PRN Reason: Protocol Last Admin: 04/30/18 08:27 Dose: 100 mls/hr Ketorolac Tromethamine (Toradol) 15 mg IVP Q6 PRN PRN Reason: Pain, severe (8-10) Ondansetron HCl (Zofran Inj) 4 mg IVP Q6 PRN PRN Reason: Nausea/Vomiting Oxycodone/Acetaminophen (Percocet 5/325 Mg Tab) 1 tab PO Q4 PRN PRN Reason: Pain, Mild (1-3) Stop: 05/02/18 17:04 Oxycodone/Acetaminophen (Percocet 5/325 Mg Tab) 2 tab PO Q4 PRN PRN Reason: Pain, moderate (4-7) Stop: 05/02/18 17:06 Pantoprazole Sodium (Protonix Ec Tab) 40 mg PO DAILY REYMUNDO Results - Vital Signs Recent Vital Signs: Last Vital Signs Temp 97.7 F 04/30/18 07:47 Pulse 76 04/30/18 07:47 Resp 18 04/30/18 07:47 BP 99/60 L 04/30/18 07:47 Pulse Ox 97 04/30/18 07:47 - Labs Result Diagrams: 04/30/18 04:20 04/30/18 04:20 Labs: Laboratory Results - last 24 hr 04/30/18 04/30/18 04:20 04:20 WBC 14.3 H RBC 4.36 Hgb 11.4 L D Hct 35.1 MCV 80.5 L MCH 26.1 L MCHC 32.4 L RDW 17.9 H Plt Count 288 MPV 8.2 Neut % (Auto) 85.7 H Lymph % (Auto) 9.9 L [place] % (Auto) 4.2 Eos % (Auto) 0.0 Baso % (Auto) 0.2 Neut # (Auto) 12.2 H Lymph # (Auto) 1.4 [place] # (Auto) 0.6 Eos # (Auto) 0.0 Baso # (Auto) 0.0 Sodium 142 Potassium 4.0 Chloride 109 H Carbon Dioxide 24 Anion Gap 13 BUN 10 Creatinine 0.6 L Est GFR ( Amer) > 60 Est GFR (Non-Af Amer) > 60 Random Glucose 88 Calcium 8.4 Total Bilirubin 0.4 AST 13 L D ALT 28 Alkaline Phosphatase 93 Total Protein 6.5 Albumin 3.2 L D Globulin 3.3 Albumin/Globulin Ratio 1.0
[2018-04-30 11:16] LABS: BASO # 0.1 K/uL (0.0-0.2); BASO % 0.6 % (0.0-2.0); EOS % 0.2 % (0.0-4.0); HEMOGLOBIN 10.6 g/dL (12.0-16.0); LYMPH # 1.7 K/uL (1.0-4.3); LYMPH % 14.2 % (20.0-40.0); MEAN CELL VOLUME 79.5 fl (81.0-99.0); MEAN CORPUSCULAR HEMOGLOBIN 26.4 pg (27.0-31.0); MEAN CORPUSCULAR HGB CONC 33.1 g/dL (33.0-37.0); MEAN PLATELET VOLUME 7.7 fl (7.2-11.7); MONO # 0.6 K/uL (0.0-0.8); MONO % 4.8 % (0.0-10.0); NEUT # 9.4 K/uL (1.8-7.0); NEUT % 80.2 % (50.0-75.0); RBC 4.02 Mil/uL (3.80-5.20); RED CELL DISTRIBUTION WIDTH 18.1 % (11.5-14.5); WHITE BLOOD COUNT 11.7 K/uL (4.8-10.8)
[2018-04-30 11:42] LABS: LYMPHOCYTE 9 % (20-50); MONOCYTE 7 % (0-10); NEUTROPHIL 84 % (42-75); TOTAL CELLS COUNTED 100
[2018-04-30 11:43] LABS: ANISOCYTOSIS SLIGHT; HYPOCHROMIC SLIGHT; PLATELET ESTIMATE NORMAL (NORMAL)
[2018-04-30 11:44] LABS: OVALOCYTES SLIGHT; TEARDROP CELLS SLIGHT; TOXIC GRANULATION PRESENT
[2018-04-30] MEDS: Pantoprazole 40 mg EC Tab PO SCH (16:04)
[2018-05-01] MEDS: metroNIDAZOLE 500mg/100ml NS 100 ML IVPB SCH ×3 (00:12→17:46)
[2018-05-01 05:59] LABS: BASO # 0.1 K/uL (0.0-0.2); BASO % 0.6 % (0.0-2.0); EOS # 0.1 K/uL (0.0-0.7); EOS % 0.9 % (0.0-4.0); HEMOGLOBIN 10.8 g/dL (12.0-16.0); LYMPH # 2.1 K/uL (1.0-4.3); LYMPH % 24.8 % (20.0-40.0); MEAN CELL VOLUME 79.9 fl (81.0-99.0); MEAN CORPUSCULAR HEMOGLOBIN 26.1 pg (27.0-31.0); MEAN CORPUSCULAR HGB CONC 32.6 g/dL (33.0-37.0); MEAN PLATELET VOLUME 8.3 fl (7.2-11.7); MONO # 0.5 K/uL (0.0-0.8); MONO % 6.1 % (0.0-10.0); NEUT # 5.8 K/uL (1.8-7.0); NEUT % 67.6 % (50.0-75.0); RBC 4.12 Mil/uL (3.80-5.20); RED CELL DISTRIBUTION WIDTH 17.8 % (11.5-14.5); WHITE BLOOD COUNT 8.5 K/uL (4.8-10.8)
[2018-05-01 07:37] LABS: BLOOD UREA NITROGEN 13 mg/dl (7-17); CALCIUM 8.6 mg/dL (8.4-10.2); GFR AFRICAN-AMERICAN > 60; GFR NON-AFRICAN AMERICAN > 60
[2018-05-01] MEDS: Ciprofloxacin 400mg/200ml D5W 400 MG/200 ML BAG IVPB SCH ×2 (08:51→21:06)
[2018-05-01] MEDS: Pantoprazole 40 mg EC Tab PO SCH (08:56)
--- NOTE | 2018-05-01 10:42 | CP.PCM.PN ---
<Joseph Gomez - Last Filed: 05/01/18 11:39> Subjective - Date & Time of Evaluation Date of Evaluation: 05/01/18 Time of Evaluation: 10:20 - Subjective Subjective: Surgery- Dr. Spaulding Patient seen and examined at bedside. No acute events overnight. Tolerating regular diet. States abdominal pain is significantly better. Denies Nausea, vomiting, chest pain, shortness of breath. +OOB and ambulation. Currently has an appetite. Objective - Vital Signs/Intake and Output Vital Signs (last 24 hours): Temp Pulse Resp BP Pulse Ox 98.3 F 59 L 18 113/74 98 05/01/18 07:42 05/01/18 07:42 05/01/18 07:42 05/01/18 07:42 05/01/18 07:42 Intake and Output: 05/01/18 05/01/18 06:59 18:59 Intake Total 350 Balance 350 - Medications Medications: Current Medications Acetaminophen (Tylenol 325mg Tab) 650 mg PO Q6 PRN PRN Reason: Pain, Mild (1-3) Acetaminophen (Tylenol 325mg Tab) 650 mg PO Q6 PRN PRN Reason: Fever >100.4 F Albuterol/Ipratropium (Duoneb 3 Mg/0.5 Mg (3 Ml) Ud) 3 ml INH RQ6 PRN PRN Reason: Shortness of Breath Ciprofloxacin (Cipro 400mg/200ml Dsw) 400 mg in 200 mls @ 200 mls/hr IVPB Q12 REYMUNDO PRN Reason: Protocol Last Admin: 05/01/18 08:51 Dose: 200 mls/hr Metronidazole (Flagyl 500mg/100ml Ns) 100 mls @ 100 mls/hr IVPB Q8 REYMUNDO PRN Reason: Protocol Last Admin: 05/01/18 08:56 Dose: 100 mls/hr Ketorolac Tromethamine (Toradol) 15 mg IVP Q6 PRN PRN Reason: Pain, severe (8-10) Ondansetron HCl (Zofran Inj) 4 mg IVP Q6 PRN PRN Reason: Nausea/Vomiting Oxycodone/Acetaminophen (Percocet 5/325 Mg Tab) 1 tab PO Q4 PRN PRN Reason: Pain, Mild (1-3) Stop: 06/07/18 17:04 Oxycodone/Acetaminophen (Percocet 5/325 Mg Tab) 2 tab PO Q4 PRN PRN Reason: Pain, moderate (4-7) Stop: 05/02/18 17:06 Pantoprazole Sodium (Protonix Ec Tab) 40 mg PO DAILY REYMUNDO Last Admin: 05/01/18 08:56 Dose: 40 mg - Labs Labs: 05/01/18 04:20 05/01/18 04:20 - Constitutional Appears: Non-toxic, No Acute Distress - Head Exam Head Exam: ATRAUMATIC - Eye Exam Eye Exam: EOMI. absent: Scleral icterus - ENT Exam ENT Exam: Mucous Membranes Moist - Respiratory Exam Respiratory Exam: NORMAL BREATHING PATTERN. absent: Accessory Muscle Use, Respiratory Distress - Cardiovascular Exam Cardiovascular Exam: +S1, +S2. absent: Bradycardia, Tachycardia - GI/Abdominal Exam GI & Abdominal Exam: Guarding (voluntary guarding w/ palpation), Soft, Tenderness (tender to deep palpation in RLQ). absent: Distended, Rigid - Extremities Exam Extremities Exam: absent: Calf Tenderness - Neurological Exam Neurological Exam: Alert, Awake, Oriented x3 - Skin Skin Exam: Intact, Warm Assessment and Plan - Assessment and Plan (Free Text) Assessment: 27F w/ stump appendicitis leukocytosis reactive to steroids; leukocytosis current resolved Plan: - continue IVAbx - advance to regular diet - serial abd exams - will continue to monitor - no acute surgical interventiona this time - discussed w/ [facility] <Maurizio Spaulding - Last Filed: 05/01/18 14:49> Subjective - Subjective Subjective: Patient was seen and examined at the bedside. Agree with resident's note above. Objective - Vital Signs/Intake and Output Vital Signs (last 24 hours): Temp Pulse Resp BP Pulse Ox 98.2 F 55 L 18 120/81 99 05/01/18 11:56 05/01/18 11:56 05/01/18 11:56 05/01/18 11:56 05/01/18 11:56 Intake and Output: 05/01/18 05/01/18 06:59 18:59 Intake Total 350 Balance 350 - Medications Medications: Current Medications Acetaminophen (Tylenol 325mg Tab) 650 mg PO Q6 PRN PRN Reason: Pain, Mild (1-3) Acetaminophen (Tylenol 325mg Tab) 650 mg PO Q6 PRN PRN Reason: Fever >100.4 F Albuterol/Ipratropium (Duoneb 3 Mg/0.5 Mg (3 Ml) Ud) 3 ml INH RQ6 PRN PRN Reason: Shortness of Breath Ciprofloxacin (Cipro 400mg/200ml Dsw) 400 mg in 200 mls @ 200 mls/hr IVPB Q12 REYMUNDO PRN Reason: Protocol Last Admin: 05/01/18 08:51 Dose: 200 mls/hr Metronidazole (Flagyl 500mg/100ml Ns) 100 mls @ 100 mls/hr IVPB Q8 REYMUNDO PRN Reason: Protocol Last Admin: 05/01/18 08:56 Dose: 100 mls/hr Ketorolac Tromethamine (Toradol) 15 mg IVP Q6 PRN PRN Reason: Pain, severe (8-10) Ondansetron HCl (Zofran Inj) 4 mg IVP Q6 PRN PRN Reason: Nausea/Vomiting Oxycodone/Acetaminophen (Percocet 5/325 Mg Tab) 1 tab PO Q4 PRN PRN Reason: Pain, Mild (1-3) Stop: 05/02/18 17:04 Oxycodone/Acetaminophen (Percocet 5/325 Mg Tab) 2 tab PO Q4 PRN PRN Reason: Pain, moderate (4-7) Stop: 05/02/18 17:06 Pantoprazole Sodium (Protonix Ec Tab) 40 mg PO DAILY [facility] Last Admin: 05/01/18 08:56 Dose: 40 mg - Labs Labs: 05/01/18 04:20 05/01/18 04:20
--- NOTE | 2018-05-01 11:21 | CP.PCM.PN ---
Subjective - Date & Time of Evaluation Date of Evaluation: 05/01/18 Time of Evaluation: 10:00 - Subjective Subjective: No fever abd pain better, sl tenderness to palpation leukocytosis resolved Tolerating Liquid diet no cough no CP Objective - Vital Signs/Intake and Output Vital Signs (last 24 hours): Temp Pulse Resp BP Pulse Ox 98.3 F 59 L 18 113/74 98 05/01/18 07:42 05/01/18 07:42 05/01/18 07:42 05/01/18 07:42 05/01/18 07:42 Intake and Output: 05/01/18 05/01/18 06:59 18:59 Intake Total 350 Balance 350 - Medications Medications: Current Medications Acetaminophen (Tylenol 325mg Tab) 650 mg PO Q6 PRN PRN Reason: Pain, Mild (1-3) Acetaminophen (Tylenol 325mg Tab) 650 mg PO Q6 PRN PRN Reason: Fever >100.4 F Albuterol/Ipratropium (Duoneb 3 Mg/0.5 Mg (3 Ml) Ud) 3 ml INH RQ6 PRN PRN Reason: Shortness of Breath Ciprofloxacin (Cipro 400mg/200ml Dsw) 400 mg in 200 mls @ 200 mls/hr IVPB Q12 REYMUNDO PRN Reason: Protocol Last Admin: 05/01/18 08:51 Dose: 200 mls/hr Metronidazole (Flagyl 500mg/100ml Ns) 100 mls @ 100 mls/hr IVPB Q8 REYMUNDO PRN Reason: Protocol Last Admin: 05/01/18 08:56 Dose: 100 mls/hr Ketorolac Tromethamine (Toradol) 15 mg IVP Q6 PRN PRN Reason: Pain, severe (8-10) Ondansetron HCl (Zofran Inj) 4 mg IVP Q6 PRN PRN Reason: Nausea/Vomiting Oxycodone/Acetaminophen (Percocet 5/325 Mg Tab) 1 tab PO Q4 PRN PRN Reason: Pain, Mild (1-3) Stop: 05/02/18 17:04 Oxycodone/Acetaminophen (Percocet 5/325 Mg Tab) 2 tab PO Q4 PRN PRN Reason: Pain, moderate (4-7) Stop: 05/02/18 17:06 Pantoprazole Sodium (Protonix Ec Tab) 40 mg PO DAILY [facility] Last Admin: 05/01/18 08:56 Dose: 40 mg - Labs Labs: 05/01/18 04:20 05/01/18 04:20 - Constitutional Appears: Non-toxic, No Acute Distress - Head Exam Head Exam: ATRAUMATIC, NORMAL INSPECTION, NORMOCEPHALIC - Eye Exam Eye Exam: EOMI, Normal appearance, PERRL Pupil Exam: NORMAL ACCOMODATION - ENT Exam ENT Exam: Mucous Membranes Moist, Normal External Ear Exam - Neck Exam Neck Exam: Full ROM. absent: Meningismus - Respiratory Exam Respiratory Exam: NORMAL BREATHING PATTERN. absent: Respiratory Distress - Cardiovascular Exam Cardiovascular Exam: REGULAR RHYTHM, +S1, +S2 - GI/Abdominal Exam GI & Abdominal Exam: Soft, mild Tenderness, RLQ , Normal Bowel Sounds - Extremities Exam Extremities Exam: Full ROM, Normal Capillary Refill. absent: Calf Tenderness, Pedal Edema - Back Exam Back Exam: Full ROM, NORMAL INSPECTION. absent: CVA tenderness (L), CVA tenderness (R) - Neurological Exam Neurological Exam: Alert, Awake, CN II-XII Intact, Oriented x3 Neuro motor strength exam: Left Upper Extremity: 5, Right Upper Extremity: 5, Left Lower Extremity: 5, Right Lower Extremity: 5 - Psychiatric Exam Psychiatric exam: Normal Affect, Normal Mood - Skin Skin Exam: Dry, Normal Color, Warm Assessment and Plan - Assessment and Plan (Free Text) Assessment: 27 y/o F with no significant medical history, 2 wks presented to ER with abdominal pain. She has history of laparascopic appendicitis 3 years ago in [facility]. Ct abdomen and pelvis in ER showed 1.7 cm appendicolith , peristump inflammation suspicious for acute appendicitis .WBC was slightly elevated 12 K While in ER Morphine IV was given for pain and Zosyn IV started for peristump inflammation and patient developed allergic reaction with wheezing , low BP and diffuse rash . Morphine and Zosyn were stopped , she was given IV Solumedrol , Duonebs, Benadryl IV and bolus of IVF. Patient is admitted for infected stump appendicitis and anaphylactic rx to ? Morphine vs Zosyn. 1. Acute stump appendicitis with appendicolith cont IV Cipro and Flagyl Leukocytosis resolved Surgery consulted pain management PRN . Avoid morphine since patient had allergic reaction to it Toradol PRN for pain IVF hydration No Zosyn since patient developed allergic reaction ID consult - Dr Crane- rec 14 days of antibiotics worsening of Leukocytosis yesterday prob sec to steroids tolerating Clear liquid diet, abd pain improving , afebrile Discussed with Dr Spaulding - balaji to continue IV antibiotics, start Regular diet today and he will re-eval in am , 2. Anaphylactic reaction received IV morphine and Zosyn then developed the rxn d/c both medications Solumedrol , Benadryl, Duonebs given continue IVF 3. Recent vaginal delivery with minimal vaginal spotting advised pt not to breasfeed while on Cipro 4. DVt prophylaxis SCD early ambulation
--- NOTE | 2018-05-01 13:05 | CP.PCM.CON ---
History of Present Illness - History of Present Illness History of Present Illness: discussed on rounds rx in progress leukocytosis likely due to infection/stress/ demargination/ steroids/ agree with current antibiotics in view of allergy to PCN no breast feeding while on cipro cont rx for 14 days total with follow up imaging Review of Systems - Review of Systems All systems: reviewed and no additional remarkable complaints except Past Patient History - Infectious Disease Hx of Infectious Diseases: None - Tetanus Immunizations Tetanus Immunization: Unknown - Past Medical History & Family History Past Medical History?: Yes - Past Social History Smoking Status: Never Smoked - CARDIAC Hx Cardiac Disorders: No - PULMONARY Hx Respiratory Disorders: No - NEUROLOGICAL Hx Neurological Disorder: No - HEENT Hx HEENT Problems: No - RENAL Hx Chronic Kidney Disease: No - ENDOCRINE/METABOLIC Hx Endocrine Disorders: No - HEMATOLOGICAL/ONCOLOGICAL Hx Blood Disorders: No - INTEGUMENTARY Hx Dermatological Problems: No - MUSCULOSKELETAL/RHEUMATOLOGICAL Hx Musculoskeletal Disorders: No Hx Falls: No - GASTROINTESTINAL Other/Comment: Appendectomy - GENITOURINARY/GYNECOLOGICAL Hx Genitourinary Disorders: No - PSYCHIATRIC Hx Psychophysiologic Disorder: No Hx Substance Use: No - SURGICAL HISTORY Hx Surgeries: Yes Hx Appendectomy: Yes - ANESTHESIA Hx Anesthesia: No Meds Allergies/Adverse Reactions: Allergies Allergy/AdvReac Type Severity Reaction Status Date / Time morphine Allergy SHORTNESS Verified 04/29/18 10:35 OF BREATH Penicillins Allergy URTICARIA Verified 04/29/18 12:16 - Medications Medications: Current Medications Acetaminophen (Tylenol 325mg Tab) 650 mg PO Q6 PRN PRN Reason: Pain, Mild (1-3) Acetaminophen (Tylenol 325mg Tab) 650 mg PO Q6 PRN PRN Reason: Fever >100.4 F Albuterol/Ipratropium (Duoneb 3 Mg/0.5 Mg (3 Ml) Ud) 3 ml INH RQ6 PRN PRN Reason: Shortness of Breath Ciprofloxacin (Cipro 400mg/200ml Dsw) 400 mg in 200 mls @ 200 mls/hr IVPB Q12 REYMUNDO PRN Reason: Protocol Last Admin: 05/01/18 08:51 Dose: 200 mls/hr Metronidazole (Flagyl 500mg/100ml Ns) 100 mls @ 100 mls/hr IVPB Q8 REYMUNDO PRN Reason: Protocol Last Admin: 05/01/18 08:56 Dose: 100 mls/hr Ketorolac Tromethamine (Toradol) 15 mg IVP Q6 PRN PRN Reason: Pain, severe (8-10) Ondansetron HCl (Zofran Inj) 4 mg IVP Q6 PRN PRN Reason: Nausea/Vomiting Oxycodone/Acetaminophen (Percocet 5/325 Mg Tab) 1 tab PO Q4 PRN PRN Reason: Pain, Mild (1-3) Stop: 05/02/18 17:04 Oxycodone/Acetaminophen (Percocet 5/325 Mg Tab) 2 tab PO Q4 PRN PRN Reason: Pain, moderate (4-7) Stop: 05/02/18 17:06 Pantoprazole Sodium (Protonix Ec Tab) 40 mg PO DAILY REYMUNDO Last Admin: 05/01/18 08:56 Dose: 40 mg Physical Exam - Constitutional Appears: No Acute Distress, Chronically Ill - Head Exam Head Exam: ATRAUMATIC - Eye Exam Eye Exam: PERRL. absent: Scleral icterus Pupil Exam: NORMAL ACCOMODATION - ENT Exam ENT Exam: Mucous Membranes Moist - Neck Exam Neck exam: Positive for: Full Rom. Negative for: Lymphadenopathy - Respiratory Exam Respiratory Exam: Decreased Breath Sounds, Clear to Auscultation Bilateral - Cardiovascular Exam Cardiovascular Exam: REGULAR RHYTHM, +S1, +S2 - GI/Abdominal Exam GI & Abdominal Exam: Diminished Bowel Sounds, Soft. absent: Guarding, Rebound, Rigid, Tenderness - Rectal Exam Rectal Exam: Deferred - Exam Exam: NORMAL INSPECTION - Extremities Exam Extremities exam: Negative for: pedal edema - Back Exam Back exam: absent: CVA tenderness (L), CVA tenderness (R) - Neurological Exam Neurological exam: Alert, CN II-XII Intact, Oriented x3, Reflexes Normal - Psychiatric Exam Psychiatric exam: Normal Mood - Skin Skin Exam: Dry, Intact Results - Vital Signs Recent Vital Signs: Last Vital Signs Temp 98.2 F 05/01/18 11:56 Pulse 55 L 05/01/18 11:56 Resp 18 05/01/18 11:56 BP 120/81 05/01/18 11:56 Pulse Ox 99 05/01/18 11:56 - Labs Result Diagrams: 05/01/18 04:20 05/01/18 04:20 Labs: Laboratory Results - last 24 hr 04/30/18 05/01/18 05/01/18 10:55 04:20 04:20 WBC 8.5 RBC 4.12 Hgb 10.8 L Hct 33.0 L MCV 79.9 L MCH 26.1 L MCHC 32.6 L RDW 17.8 H Plt Count 274 MPV 8.3 Neut % (Auto) 67.6 Lymph % (Auto) 24.8 [place] % (Auto) 6.1 Eos % (Auto) 0.9 Baso % (Auto) 0.6 Neut # (Auto) 5.8 Lymph # (Auto) 2.1 [place] # (Auto) 0.5 Eos # (Auto) 0.1 Baso # (Auto) 0.1 Sodium 142 Potassium 3.8 Chloride 98 Carbon Dioxide 23 Anion Gap 25 H BUN 13 Creatinine 0.6 L Est GFR ( Amer) > 60 Est GFR (Non-Af Amer) > 60 Random Glucose 89 Calcium 8.6 Procalcitonin 0.06 L Assessment & Plan - Assessment and Plan (Free Text) Assessment: STUMP INFECTION S/P APPENDECTOMY NO DRAINABLE ABSCESS leukocytosis likely due to infection/stress/ demargination/ steroids/ agree with current antibiotics in view of allergy to PCN ALL CULTURES NEG THUSS FAR RLQ ABD PAIN AND TENDERRNESS RESOLVING LEUKOCYTOSIS RESOLVED CONT RX X 14 DAYS WITH FOLLOW UP IMAGING AND GI/ SURGICAL FOLLOW UP NO WHILE ON CIPRO
[2018-05-02] MEDS: metroNIDAZOLE 500mg/100ml NS 100 ML IVPB SCH ×2 (00:12→09:10)
[2018-05-02 00:24] VITALS: RESP 18
[2018-05-02 06:51] LABS: BASO % 0.5 % (0.0-2.0); EOS # 0.1 K/uL (0.0-0.7); EOS % 1.5 % (0.0-4.0); HEMOGLOBIN 11.6 g/dL (12.0-16.0); LYMPH # 2.1 K/uL (1.0-4.3); LYMPH % 22.4 % (20.0-40.0); MEAN CELL VOLUME 79.6 fl (81.0-99.0); MEAN CORPUSCULAR HEMOGLOBIN 26.3 pg (27.0-31.0); MEAN PLATELET VOLUME 8.4 fl (7.2-11.7); MONO # 0.5 K/uL (0.0-0.8); MONO % 5.4 % (0.0-10.0); NEUT # 6.6 K/uL (1.8-7.0); NEUT % 70.2 % (50.0-75.0); NRBC % 0.1 % (0.0-0.0); RBC 4.42 Mil/uL (3.80-5.20); RED CELL DISTRIBUTION WIDTH 17.2 % (11.5-14.5); WHITE BLOOD COUNT 9.4 K/uL (4.8-10.8)
--- NOTE | 2018-05-02 07:49 | CP.PCM.PN ---
<KatherineAmos - Last Filed: 05/02/18 07:58> Subjective - Date & Time of Evaluation Date of Evaluation: 05/02/18 Time of Evaluation: 07:00 - Subjective Subjective: Surgery Progress note. Dr. Spaulding Pt seen and examined at bedside. No acute events overnight. No N/V/D. No F/C. Does report some dizziness when she gets up too quickly. Abdominal pain improved. Tolerating diet. Objective - Vital Signs/Intake and Output Vital Signs (last 24 hours): Temp Pulse Resp BP Pulse Ox 98.3 F 57 L 18 111/68 99 05/02/18 04:53 05/02/18 04:53 05/02/18 04:53 05/02/18 04:53 05/02/18 04:53 - Medications Medications: Current Medications Acetaminophen (Tylenol 325mg Tab) 650 mg PO Q6 PRN PRN Reason: Pain, Mild (1-3) Acetaminophen (Tylenol 325mg Tab) 650 mg PO Q6 PRN PRN Reason: Fever >100.4 F Albuterol/Ipratropium (Duoneb 3 Mg/0.5 Mg (3 Ml) Ud) 3 ml INH RQ6 PRN PRN Reason: Shortness of Breath Ciprofloxacin (Cipro 400mg/200ml Dsw) 400 mg in 200 mls @ 200 mls/hr IVPB Q12 REYMUNDO PRN Reason: Protocol Last Admin: 05/01/18 21:06 Dose: 200 mls/hr Metronidazole (Flagyl 500mg/100ml Ns) 100 mls @ 100 mls/hr IVPB Q8 REYMUNDO PRN Reason: Protocol Last Admin: 05/02/18 00:12 Dose: 100 mls/hr Ketorolac Tromethamine (Toradol) 15 mg IVP Q6 PRN PRN Reason: Pain, severe (8-10) Ondansetron HCl (Zofran Inj) 4 mg IVP Q6 PRN PRN Reason: Nausea/Vomiting Oxycodone/Acetaminophen (Percocet 5/325 Mg Tab) 1 tab PO Q4 PRN PRN Reason: Pain, Mild (1-3) Stop: 05/02/18 17:04 Oxycodone/Acetaminophen (Percocet 5/325 Mg Tab) 2 tab PO Q4 PRN PRN Reason: Pain, moderate (4-7) Stop: 05/02/18 17:06 Pantoprazole Sodium (Protonix Ec Tab) 40 mg PO DAILY REYMUNDO Last Admin: 05/01/18 08:56 Dose: 40 mg - Labs Labs: 05/02/18 06:47 05/01/18 04:20 - Constitutional Appears: Well, Non-toxic, No Acute Distress - Head Exam Head Exam: ATRAUMATIC, NORMAL INSPECTION, NORMOCEPHALIC - Eye Exam Eye Exam: EOMI, Normal appearance - ENT Exam ENT Exam: Mucous Membranes Moist - Respiratory Exam Respiratory Exam: NORMAL BREATHING PATTERN. absent: Accessory Muscle Use, Respiratory Distress - Cardiovascular Exam Cardiovascular Exam: RRR. absent: JVD - GI/Abdominal Exam GI & Abdominal Exam: Soft. absent: Distended, Firm, Guarding, Rigid, Tenderness , Rebound - Extremities Exam Extremities Exam: Normal Inspection. absent: Calf Tenderness - Neurological Exam Neurological Exam: Alert, Awake, Oriented x3 - Skin Skin Exam: Dry, Intact, Normal Color, Warm Assessment and Plan - Assessment and Plan (Free Text) Assessment: 27yo F with stump appendicitis. Plan: - Continue Abx as per ID - Regular diet - Cleared for discharge from surgical standpoint - No acute surgical intervention at this time Further recs as per Dr. Chelly Murphy PGY1 surgery pager: [phone] <Maurizio Spaulding - Last Filed: 05/02/18 10:24> Subjective - Date & Time of Evaluation Time of Evaluation: 10:00 - Subjective Subjective: Patient was seen and examined at the bedside. Agree with resident's note above. Objective - Vital Signs/Intake and Output Vital Signs (last 24 hours): Temp Pulse Resp BP Pulse Ox 97.7 F 55 L 18 123/81 99 05/02/18 08:17 05/02/18 08:17 05/02/18 08:17 05/02/18 08:17 05/02/18 08:17 - Medications Medications: Current Medications Acetaminophen (Tylenol 325mg Tab) 650 mg PO Q6 PRN PRN Reason: Pain, Mild (1-3) Acetaminophen (Tylenol 325mg Tab) 650 mg PO Q6 PRN PRN Reason: Fever >100.4 F Albuterol/Ipratropium (Duoneb 3 Mg/0.5 Mg (3 Ml) Ud) 3 ml INH RQ6 PRN PRN Reason: Shortness of Breath Ciprofloxacin (Cipro 400mg/200ml Dsw) 400 mg in 200 mls @ 200 mls/hr IVPB Q12 REYMUNDO PRN Reason: Protocol Last Admin: 05/02/18 09:10 Dose: 200 mls/hr Metronidazole (Flagyl 500mg/100ml Ns) 100 mls @ 100 mls/hr IVPB Q8 REYMUNDO PRN Reason: Protocol Last Admin: 05/02/18 09:10 Dose: 100 mls/hr Ketorolac Tromethamine (Toradol) 15 mg IVP Q6 PRN PRN Reason: Pain, severe (8-10) Ondansetron HCl (Zofran Inj) 4 mg IVP Q6 PRN PRN Reason: Nausea/Vomiting Oxycodone/Acetaminophen (Percocet 5/325 Mg Tab) 1 tab PO Q4 PRN PRN Reason: Pain, Mild (1-3) Stop: 05/02/18 17:04 Oxycodone/Acetaminophen (Percocet 5/325 Mg Tab) 2 tab PO Q4 PRN PRN Reason: Pain, moderate (4-7) Stop: 05/02/18 17:06 Pantoprazole Sodium (Protonix Ec Tab) 40 mg PO DAILY [facility] Last Admin: 05/02/18 09:09 Dose: 40 mg - Labs Labs: 05/02/18 06:47 05/01/18 04:20
[2018-05-02] MEDS: Pantoprazole 40 mg EC Tab PO SCH (09:09)
[2018-05-02] MEDS: Ciprofloxacin 400mg/200ml D5W 400 MG/200 ML BAG IVPB SCH (09:10)
--- NOTE | 2018-05-02 11:28 | CP.PCM.DIS ---
Provider - Provider Date of Admission: 04/29/18 09:05 Attending physician: Dina Covington MD Primary care physician: none Consults: Surgery consult ID consult Time Spent in preparation of Discharge (in minutes): 15 Hospital Course - Lab Results Lab Results: Most Recent Lab Values WBC 9.4 K/uL (4.8-10.8) 05/02/18 06:47 RBC 4.42 Mil/uL (3.80-5.20) 05/02/18 06:47 Hgb 11.6 g/dL (12.0-16.0) L 05/02/18 06:47 Hct 35.2 % (34.0-47.0) 05/02/18 06:47 MCV 79.6 fl (81.0-99.0) L 05/02/18 06:47 MCH 26.3 pg (27.0-31.0) L 05/02/18 06:47 MCHC 33.0 g/dL (33.0-37.0) 05/02/18 06:47 RDW 17.2 % (11.5-14.5) H 05/02/18 06:47 Plt Count 312 K/uL (130-400) 05/02/18 06:47 MPV 8.4 fl (7.2-11.7) 05/02/18 06:47 Neut % (Auto) 70.2 % (50.0-75.0) 05/02/18 06:47 Lymph % (Auto) 22.4 % (20.0-40.0) 05/02/18 06:47 Rankin % (Auto) 5.4 % (0.0-10.0) 05/02/18 06:47 Eos % (Auto) 1.5 % (0.0-4.0) 05/02/18 06:47 Baso % (Auto) 0.5 % (0.0-2.0) 05/02/18 06:47 Neut # (Auto) 6.6 K/uL (1.8-7.0) 05/02/18 06:47 Lymph # (Auto) 2.1 K/uL (1.0-4.3) 05/02/18 06:47 Rankin # (Auto) 0.5 K/uL (0.0-0.8) 05/02/18 06:47 Eos # (Auto) 0.1 K/uL (0.0-0.7) 05/02/18 06:47 Baso # (Auto) 0.0 K/uL (0.0-0.2) 05/02/18 06:47 Neutrophils % (Manual) 84 % (42-75) H 04/30/18 04:20 Lymphocytes % (Manual) 9 % (20-50) L 04/30/18 04:20 Monocytes % (Manual) 7 % (0-10) 04/30/18 04:20 Toxic Granulation Present 04/30/18 04:20 Platelet Estimate Normal (NORMAL) 04/30/18 04:20 Hypochromasia (manual) Slight 04/30/18 04:20 Anisocytosis (manual) Slight 04/30/18 04:20 Tear Drop Cells Slight 04/30/18 04:20 Ovalocytes Slight 04/30/18 04:20 Sodium 142 mmol/l (132-148) 05/01/18 04:20 Potassium 3.8 MMOL/L (3.6-5.0) 05/01/18 04:20 Chloride 98 mmol/L (98-107) 05/01/18 04:20 Carbon Dioxide 23 mmol/L (22-30) 05/01/18 04:20 Anion Gap 25 (10-20) H 05/01/18 04:20 BUN 13 mg/dl (7-17) 05/01/18 04:20 Creatinine 0.6 mg/dl (0.7-1.2) L 05/01/18 04:20 Est GFR ( Amer) > 60 05/01/18 04:20 Est GFR (Non-Af Amer) > 60 05/01/18 04:20 Random Glucose 89 mg/dL (65-105) 05/01/18 04:20 Calcium 8.6 mg/dL (8.4-10.2) 05/01/18 04:20 Total Bilirubin 0.4 mg/dl (0.2-1.3) 04/30/18 04:20 AST 13 U/L (14-36) L D 04/30/18 04:20 ALT 28 U/L (9-52) 04/30/18 04:20 Alkaline Phosphatase 93 U/L (38-126) 04/30/18 04:20 Total Protein 6.5 G/DL (6.3-8.2) 04/30/18 04:20 Albumin 3.2 g/dL (3.5-5.0) L D 04/30/18 04:20 Globulin 3.3 gm/dL (2.2-3.9) 04/30/18 04:20 Albumin/Globulin Ratio 1.0 (1.0-2.1) 04/30/18 04:20 Lipase 95 U/L (23-300) 04/29/18 04:08 Procalcitonin 0.06 NG/ML (0.19-0.49) L 04/30/18 10:55 Urine Color Straw (YELLOW) 04/29/18 04:00 Urine Clarity Clear (Clear) 04/29/18 04:00 Urine pH 6.0 (5.0-8.0) 04/29/18 04:00 Ur Specific [place] 1.009 (1.003-1.030) 04/29/18 04:00 Urine Protein Negative mg/dL (NEGATIVE) 04/29/18 04:00 Urine Glucose (UA) Neg mg/dL (Normal) 04/29/18 04:00 Urine Ketones Negative mg/dL (NEGATIVE) 04/29/18 04:00 Urine Blood Moderate (NEGATIVE) 04/29/18 04:00 Urine Nitrate Negative (NEGATIVE) 04/29/18 04:00 Urine Bilirubin Negative (NEGATIVE) 04/29/18 04:00 Urine Urobilinogen 0.2-1.0 mg/dL (0.2-1.0) 04/29/18 04:00 Ur Leukocyte Esterase Trace Jania/uL (Negative) 04/29/18 04:00 Urine RBC (Auto) 2 /hpf (0-3) 04/29/18 04:00 Urine Microscopic WBC 3 /hpf (0-5) 04/29/18 04:00 Ur Squamous Epith Cells < 1 /hpf (0-5) 04/29/18 04:00 - Hospital Course Hospital Course: 27 y/o F with no significant medical history, 2 wks presented to ER with abdominal pain. She has history of laparascopic appendicitis 3 years ago in [facility] [place]. Ct abdomen and pelvis in ER showed 1.7 cm appendicolith , peristump inflammation suspicious for acute appendicitis .WBC was slightly elevated 12 K While in ER Morphine IV was given for pain and Zosyn IV started for peristump inflammation and patient developed allergic reaction with wheezing , low BP and diffuse rash . Morphine and Zosyn were stopped , she was given IV Solumedrol , Duonebs, Benadryl IV and bolus of IVF. Patient was admitted for infected stump appendicitis and anaphylactic rx to telemetry. Surgery and ID were consulted. She wsa continued on IVF and antibiotics changed to Cipro and Flagyl IV. Clinically she improved , remained afebrile with normal WBC , able to tolerate Po intake and abdominal pain resolved .Cleraed by surgery for discharge. Will d/ c home on Po cipro and Flagyl Po for 10 more days ( total 14 days) Patient to follow up with her PMD . 1. Acute stump appendicitis with appendicolith Leukocytosis resolved , afebrile , procalcitonin < 0.06 Surgery and Id consulted received cipro and flagyl IV. will d/c on Cipro and flagyl Po for 10 more days 2. Anaphylactic reaction received IV morphine and Zosyn then developed the reaction . Unclaer which is the cause of allergic reaction discontinued both medications Given Solumedrol , Benadryl, Duonebs, IVF 3. Recent vaginal delivery with minimal vaginal spotting advised pt not to breasfeed while on Cipro 4. Mild azotemia ( BUN 25 ) most likley due to volume depletion and not good PO intake patient with some dizziness , weakness that improved after Bolus IVF given 5. Mild anemia most likely due to recent vaginal delivery continue vitamins 6. Sinus Bradycardia no arrythmias in monitor HR as low as 55 patient not on any medications like beta blockers As per patient her thyroid function is normal Follow up with PMD 7. DVt prophylaxis SCD early ambulation Discharge Exam - Head Exam Head Exam: ATRAUMATIC, NORMAL INSPECTION, NORMOCEPHALIC - Eye Exam Eye Exam: EOMI, Normal appearance, PERRL Pupil Exam: NORMAL ACCOMODATION - ENT Exam ENT Exam: Mucous Membranes Moist, Normal Exam - Neck Exam Neck exam: Full Rom, Normal Inspection - Respiratory Exam Respiratory Exam: Clear to PA & Lateral, NORMAL BREATHING PATTERN. absent: Rales, Rhonchi, Wheezes - Cardiovascular Exam Cardiovascular Exam: REGULAR RHYTHM, RRR, +S1, +S2. absent: JVD - GI/Abdominal Exam GI & Abdominal Exam: Normal Bowel Sounds, Soft. absent: Distended, Guarding, Rebound, Tenderness - Rectal Exam Rectal Exam: Deferred - Extremities Exam Extremities exam: calf tenderness Discharge Plan - Discharge Medications Prescriptions: Ciprofloxacin HCl [Cipro] 500 mg PO Q12 #20 tablet Metronidazole [Flagyl] 500 mg PO TID #30 tablet - Follow Up Plan Condition: STABLE Disposition: HOME/ ROUTINE Patient education suggested?: Yes Instructions: Acute Abdomen (Belly Pain), Adult (DC) Additional Instructions: follow up with in 1 week Referrals: [facility] [Outside] Maurizio Spaulding MD [Staff Provider] -
[2018-05-02] MEDS ORDERED: Sodium Chloride 0.9% 1,000 ML IV SCH (12:00)
[2018-05-02 12:13] VITALS: BP 103/67; PULSE 58; TEMP 98.1; O2SAT 98
== END 2018-05-02 14:59 | disposition home or self-care (01) | DRG 862 ==
LOC: H.ER 02:20 → H.ERHOLD 09:05 → H.TEL 15:27
PROVIDERS: ADMIT Hospitalist; ATTEND Hospitalist
DX: T81.4XXA Infection following a procedure, initial encounter (principal); K85.90 Acute pancreatitis without necrosis or infection, unspecified; L08.89 Other specified local infections of the skin and subcutaneous tissue; K30 Functional dyspepsia; K57.90 Diverticulosis of intestine, part unspecified, without perforation or abscess without bleeding; K76.0 Fatty (change of) liver, not elsewhere classified; D72.829 Elevated white blood cell count, unspecified; Z88.0 Allergy status to penicillin; K38.1 Appendicular concretions; R00.1 Bradycardia, unspecified; D64.9 Anemia, unspecified; R79.89 Other specified abnormal findings of blood chemistry